=== PATIENT | female | born 1965 | race Caucasian/White ===

== ENCOUNTER 2020-05-06 07:01 | Outpatient (CLI) | payer MEDICARE, MEDICAID, SELFPAY ==
--- NOTE | 2020-05-06 07:14 | XR_ITS ---
WS: [id number] CHEST 2 VIEWS HISTORY: CHEST PAIN COMPARISON: 09/06/2018 Lungs: Clear with no abnormality. No pleural effusion or pneumothorax. Cardiac size: Normal. Mediastinum/Aorta: Normal mediastinum. Bones: Normal. XR/XR chest 2V* [id number] IMPRESSION: Normal chest.
--- NOTE | 2020-05-06 07:14 | NM_ITS ---
WS: [id number] NUCLEAR MEDICINE VENTILATION/PERFUSION LUNG SCAN HISTORY: CHEST PAIN COMPARISON: Chest radiograph 05/06/2020 TECHNIQUE: Ventilation: 32.4 mCi of Technetium 99 DTPA aerosol inhaled. Perfusion: 5.0 mCi of technetium 99m MAA IV. Marked deposition of the radionuclide centrally. There is poor ventilation bilaterally. Matched segme ntal wedge-shaped defects in the mid RIGHT lung. There is an additional smaller, subsegmental wedge-s haped defect in the LEFT lower lung field which is also matched. NM/NM pul vent and perfus* [id number] IMPRESSION: 1. Several matched defects. As these are matched defects low probability for p ulmonary embolism.
== END 2020-05-06 07:02 | disposition home or self-care (01) ==
PROVIDERS: Family Provider Family Medicine; PCP Family Medicine; Visit Provider Family Medicine
DX: R07.89 Other chest pain (principal)
CPT/HCPCS: 71046; 78014; A9540; A9567

== ENCOUNTER 2020-07-13 18:34 | Emergency (ER) | payer MEDICARE, MEDICAID, SELFPAY ==
[2020-07-13 18:51] VITALS: BP 109/74; PULSE 81; RESP 16; TEMP 37; O2SAT 97; BMI 20.9
== END 2020-07-13 20:20 | disposition left against medical advice (07) ==
PROVIDERS: PCP Family Medicine
DX: Z53.21 Procedure and treatment not carried out due to patient leaving prior to being seen by health care provider (principal)
CPT/HCPCS: 99282

== ENCOUNTER 2020-07-14 13:29 | Emergency (ER) | payer MEDICARE, MEDICAID, SELFPAY ==
[2020-07-14 13:31] VITALS: BP 118/71; PULSE 82; RESP 16; TEMP 37.3; O2SAT 96; BMI 20.7
--- NOTE | 2020-07-14 13:48 | ED_ITS ---
HPI - Neck Pain/Injury General: Chief Complaint: Neck Pain/Injury Stated Complaint: NECK PAIN Time Seen by Provider: 07/14/20 13:38 History of Present Illness: HPI Narrative: Patient woke up with neck pain she said 5 from sleeping wrong yesterday and next tight complaint: neck pain Onset (ago): day(s) Place: home Radiation: left lateral Severity: moderate Severity scale (1-10): 4 Quality: sharp Duration: constant Relieving factors: immobilization Exacerbating factors: movement of neck Context: unknown Associated symptoms: Reports no associated symptoms; Denies headache(s) or nausea Treatments prior to arrival: none Review of Systems Narrative: Okay from sleep with neck pain hurts to turn her head to the right hurts on the side. both on the left-hand side she says Const: Denies: fever(s), chills or body aches Eyes: Denies: change in vision or blurry vision ENMT: Denies: throat pain or nasal congestion Card: Denies: chest pain or dyspnea on exertion Resp: Denies: dyspnea, productive cough or non-productive cough GI: Denies: abdominal pain, nausea or vomiting Musc: Denies: extremity pain Skin/Breast: Denies: rash Neuro: Denies: headache(s) Psych: Denies: anxiety or depression Dandy/Lymph: Denies: easy bruising PFSH ED PFSH: Social History (Updated 07/12/20 @ 13:23 by Belgica Singh LPN) Smoking and tobacco status: current every day smoker Physical Exam Const: COMMON NORMALS: no acute distress, average body habitus and patient oriented x3 HENMT: COMMON NORMALS: normocephalic HEAD & SCALP: normal to inspection and normocephalic FACE & SINUS: normal facial exam Eye: COMMON NORMALS: conjunctivae normal GENERAL EYE: appearance normal, both eyes and all related structures CONJUNCTIVA: Yes conjunctivae normal Neck/C-Spine: COMMON NORMALS: supple, no meningeal signs, no JVD and Thyroid normal; negative for full ROM THYROID: Thyroid normal CERVICAL SPINE: Yes Paracervical muscle tenderness Chest: COMMONS NORMALS: normal inspection of the chest Resp: COMMON NORMALS: normal respiratory effort and clear to auscultation bilaterally AUSCULTATION: clear to auscultation bilaterally Cardio: COMMON NORMALS: no JVD, regular rate and regular rhythm RATE: regular rate RHYTHM: regular rhythm GI: COMMON NORMALS: Normal to inspection, nondistended, normoactive bowel sounds present Extremity: COMMON NORMALS: normal to inspection and full ROM Neuro: COMMON NORMALS: patient oriented x3 MENINGEAL SIGNS: Yes no meningeal signs Course Vital Signs: Vital signs: Vital Signs Temperature 99.1 F 07/14/20 13:31 Pulse Rate 82 07/14/20 13:31 Respiratory Rate 16 07/14/20 13:31 Blood Pressure 118/71 07/14/20 13:31 Pulse Oximetry 96 07/14/20 13:31 Discharge Plan Discharge Prescriptions: No Action Unable to Assess RF: 0 mupirocin 2 % ointment 1 applic TOPICAL TID Qty: 15 RF: 0 Coding Level of Care Code ED Special Effects Person for Michelle Morales
--- NOTE | 2020-07-14 13:50 | XRR_ITS ---
PROCEDURE INFORMATION: Exam: XR Cervical Spine, 4 or 5 Views Exam date and time: 07/14/2020 2:14 PM Age: 54 years old Clinical indication: Neck pain TECHNIQUE: Imaging protocol: XR of the cervical spine, 4 or 5 views. COMPARISON: No relevant prior studies available. FINDINGS: Vertebrae: There is mild osteoarthritis with narrowing of the C5-C6 intervertebral disc space. No acute fracture. There is loss of cervical lordosis suggesting muscle spasm. Soft tissues: Unremarkable. XR/XR cervical spine 4-5V [id number] IMPRESSION: 1. No acute bone abnormality. 2. Mild osteoarthritis 3. Loss of cervical lordosis
[2020-07-14] MEDS: ketorolac 60 mg/2 mL INJ IM (13:58)
[2020-07-14] MEDS: orphenadrine 30 mg/mL Inj 2 mL 60 MG IM (13:58)
[2020-07-14] MEDS: HYDROcodone-acetaminophen 5-325 mg Tablet 1 TAB PO (13:59)
[2020-07-14 14:50] VITALS: BP 118/74; PULSE 71; RESP 20; O2SAT 94
== END 2020-07-14 14:52 | disposition home or self-care (01) ==
PROVIDERS: Emergency Provider Nurse Practitioner Family; PCP Family Medicine
DX: M54.2 Cervicalgia (principal); F17.210 Nicotine dependence, cigarettes, uncomplicated
CPT/HCPCS: 12345; 72050; 96372; 99281; 99283; J1885; J2360

== ENCOUNTER → 2020-07-29 14:40 | Outpatient (BNVA) | payer MEDICARE, MEDICAID, SELFPAY | PROVIDERS: PCP Family Medicine; Visit Provider Obstetrics & Gynecology | DX: N39.3 Stress incontinence (female) (male) (principal) | CPT/HCPCS: 81000 ==

== ENCOUNTER 2020-09-15 10:02 | Outpatient (CLI) | payer MEDICARE, MEDICAID, SELFPAY ==
--- NOTE | 2020-09-15 10:09 | MM_ITS ---
WS: [id number] BILATERAL SCREENING DIGITAL MAMMOGRAM WITH CAD HISTORY: SCREENING COMPARISON: 03/17/2018 Bilateral CC and MLO views submitted. Computer aided detection analyzed. Breast composition: There are scattered areas of fibroglandular density. No suspicious masses, microc alcifications or architectural distortion. MM/[place] [id number] IMPRESSION: BI-RADS: 1-Negative FOLLOW UP: 1 Year Follow-up
== END 2020-09-15 10:03 | disposition home or self-care (01) ==
LOC: RADSHAW 10:07
PROVIDERS: PCP Family Medicine; Visit Provider Family Medicine
DX: Z12.31 Encounter for screening mammogram for malignant neoplasm of breast (principal)
CPT/HCPCS: 77067

== ENCOUNTER 2020-12-04 01:26 | Emergency (ER) | payer MEDICARE, MEDICAID, SELFPAY ==
[2020-12-04 01:30] VITALS: BP 127/88; PULSE 90; RESP 17; TEMP 36.7; O2SAT 95; BMI 21.1
--- NOTE | 2020-12-04 01:38 | ED_ITS ---
HPI - Headache General: Chief Complaint: Headache Stated Complaint: WEAKNESS/SHAMRA Time Seen by Provider: 12/04/20 01:31 Source: patient and EMS Mode of arrival: EMS Limitations: no limitations History of Present Illness: HPI Narrative: 55-year-old female is here by EMS. She states that her was arguing she is feeling stressed out and she had a headache. She states that since leaving her house her headache is improved greatly. She states that he was intoxicated and extremely stressed out. She denies any nausea vomiting. States her headache is now a 1 out of 10. Denies any chest pain. MD elicited complaint: headache Associated symptoms: Deny chest pain, fever(s), nausea, rash or vomiting Review of Systems Const: Denies: fever(s), chills, body aches or change in appetite Eyes: Denies: blurry vision or eye discomfort ENMT: Denies: throat pain or dental pain Card: Denies: chest pain Resp: Denies: dyspnea GI: Denies: abdominal pain, nausea, vomiting or diarrhea : Denies: dysuria Musc: Denies: neck pain or back pain Skin/Breast: Denies: rash Neuro: Reports: headache(s) Psych: Denies: depression Dandy/Lymph: Denies: easy bruising All/Imm: Denies: urticaria PFSH ED PFSH: Family History Father Hypertension Mother Diabetes Hyperlipidemia Hypertension Sister Ovarian cancer Uterine cancer Other CAD (coronary artery disease) Denies family history of Colon cancer Breast cancer Thyroid disease Stroke Social History Smoking and tobacco status: current every day smoker cigarettes Packs smoked per day: 0.5 Alcohol intake: never Physical Exam Const: COMMON NORMALS: no acute distress, patient oriented x3 and healthy appearing HENMT: COMMON NORMALS: normocephalic and atraumatic HEAD & SCALP: normocephalic and atraumatic Eye: COMMON NORMALS: Equal, round and reactive pupils present and EOMs intact bilaterally PUPIL: Yes Equal, round and reactive pupils present Neck/C-Spine: COMMON NORMALS: full ROM and supple Chest: COMMONS NORMALS: normal inspection of the chest and normal palpation of entire chest wall Resp: COMMON NORMALS: normal respiratory effort, No retractions, No use of accessory muscles and clear to auscultation bilaterally AUSCULTATION: clear to auscultation bilaterally Cardio: COMMON NORMALS: regular rate, regular rhythm and No murmurs present (Cardio) RATE: regular rate RHYTHM: regular rhythm GI: COMMON NORMALS: Normal to inspection, nondistended, normoactive bowel sounds present, Soft to palpation, non-tender and no masses PALPATION: Yes Soft to palpation Extremity: COMMON NORMALS: normal to inspection and full ROM Neuro: COMMON NORMALS: patient oriented x3, moves all extremities and no focal motor deficits Psych: COMMON NORMALS: mental status grossly normal, Normal thought process present and cooperative THOUGHT PROCESS: Normal thought process present Skin: COMMON NORMALS: no rashes or lesions noted and no wounds GENERAL SKIN EXAM: no rashes or lesions noted Course Vital Signs: Vital signs: Vital Signs Temperature 98.0 F 12/04/20 01:30 Pulse Rate 90 12/04/20 01:30 Respiratory Rate 17 12/04/20 01:30 Blood Pressure 127/88 12/04/20 01:30 Pulse Oximetry 95 12/04/20 01:30 MDM - Headache MDM Narrative: Medical decision making narrative: Jing presents here with headache likely caused from stress. She has no signs of subarachnoid hemorrhage or meningitis. She has been headache free here. Patient's blood work is normal. She is stable for discharge and is return if worsening. Lab Data: Labs: Lab Results 12/04/20 12/04/20 Range/Units 01:44 01:44 WBC 10.2 H (4.0-10.0) 10^3/ uL RBC 4.12 (4.1-5.3) 10^6/u L Hgb 13.9 (11.5-15.3) g/dL Hct 41.1 (37.0-47.0) % MCV 99.8 H (81-99) fL MCH 33.7 (28.0-34.0) pg MCHC 33.8 (30.0-36.0) g/dL RDW 13.3 (12.1-15.1) % Plt Count 306 (130-400) 10^3/c mm MPV 10.7 H (7.4-10.4) fL Neut % (Auto) 44.1 % Lymph % (Auto) 40.2 % [place] % (Auto) 9.3 % Eos % (Auto) 4.3 % Baso % (Auto) 1.6 % Neut # (Auto) 4.52 (1.8-7.7) 10^3/u L Lymph # (Auto) 4.1 (0.8-4.8) 10^3/u L [place] # (Auto) 1.0 H (0.2-0.9) 10^3/u L Eos # (Auto) 0.4 (0.0-0.8) 10^3/u L Baso # (Auto) 0.2 H (0.0-0.1) 10^3/u L Nucleated RBC % (a uto) 0 % Nucleated RBCs # 0.0 /100WBC Sodium 141 (136-145) mmol/L Potassium 3.9 (3.5-5.1) mmol/L Chloride 102 (98-107) mmol/L Carbon Dioxide 28 (22-29) mmol/L Anion Gap 14.9 (5-19) BUN 10 (6-20) mg/dL Creatinine 0.7 (0.5-0.9) mg/dL Glucose 111 (65-115) mg/dL Calculated Osmolal ity 292 (285-295) mOsm/k g Calcium 9.3 (8.5-10.5) mg/dL Discharge Plan Discharge Patient Disposition: Home Clinical Impression: Headache Qualifiers: Headache type: unspecified Headache chronicity pattern: unspecified pattern Intractability: not intractable Qualified Code(s): R51.9 - Headache, unspecified Condition: Stable Prescriptions: No Action gabapentin 300 mg capsule 300 mg PO .at hs RF: 0 albuterol sulfate [Ventolin HFA] 90 mcg/actuation HFA aerosol inhaler 2 puff INHALATION QID RF: 0 escitalopram oxalate [Lexapro] 20 mg tablet 20 mg PO DAILY RF: 0 fluticasone furoate 50 mcg/actuation blister with device 2 inh INHALATION .each nostril qd RF: 0 Trelegy Ellipta 100-62.5-25 mcg blister with device 1 inh INHALATION DAILY RF: 0 cyclobenzaprine 5 mg tablet 5 mg PO TID PRN (Reason: muscle spasm) Qty: 14 RF: 0 Discharge Orders: Discharge ED (Routine); Ordered 12/04/20 Ordered By: Rae Lowe Referrals: Asaf Nails MD [Primary Care Provider] - 1-3 days Discharge Diet: Advance as tolerated Discharge Activity: Resume usual activity Patient Instructions: Headache Coding Level of Care Code ED Blankbook Stitching Machine Operator for Chg Fwd Exam Comprehensive
[2020-12-04 01:51] LABS: Basophils # 0.2 10^3/uL (0.0-0.1); Basophils % 1.6 %; Eosinophils # 0.4 10^3/uL (0.0-0.8); Eosinophils % 4.3 %; Hematocrit 41.1 % (37.0-47.0); Hemoglobin 13.9 g/dL (11.5-15.3); Lymphocytes # 4.1 10^3/uL (0.8-4.8); Lymphocytes % 40.2 %; Mean Corpuscular HGB Conc 33.8 g/dL (30.0-36.0); Mean Corpuscular Hemoglobin 33.7 pg (28.0-34.0); Mean Corpuscular Volume 99.8 fL (81-99); Mean Platelet Volume 10.7 fL (7.4-10.4); Monocytes % 9.3 %; Neutrophils # 4.52 10^3/uL (1.8-7.7); Neutrophils % 44.1 %; Nucleated Red Blood Cells % 0 %; Platelet Count 306 10^3/cmm (130-400); Red Blood Count 4.12 10^6/uL (4.1-5.3); Red Cell Distribution Width 13.3 % (12.1-15.1); White Blood Count 10.2 10^3/uL (4.0-10.0)
[2020-12-04] MEDS: ketorolac 30 mg/mL INJ 15 MG IVP (01:54)
[2020-12-04] MEDS: ondansetron 2 mg/ML SDV 2 mL 4 MG IVP (01:54)
[2020-12-04 02:21] LABS: Anion Gap 14.9 (5-19); Blood Urea Nitrogen 10 mg/dL (6-20); Calcium 9.3 mg/dL (8.5-10.5); Carbon Dioxide 28 mmol/L (22-29); Chloride 102 mmol/L (98-107); Glomerular Filtration Rate 86.6 mL/min (90-130); Glucose 111 mg/dL (65-115); Osmolality Calculated 292 mOsm/kg (285-295); Potassium 3.9 mmol/L (3.5-5.1); Sodium 141 mmol/L (136-145)
[2020-12-04 02:32] VITALS: BP 124/84; PULSE 87; RESP 16; O2SAT 99
== END 2020-12-04 02:33 | disposition home or self-care (01) ==
PROVIDERS: Emergency Provider Emergency Medicine; PCP Family Medicine
DX: R51.9 Headache, unspecified (principal); F17.210 Nicotine dependence, cigarettes, uncomplicated
CPT/HCPCS: 12345; 80048; 85025; 96374; 96375; 99281; 99283; J1885; J2405

== ENCOUNTER 2022-01-24 07:57 | Emergency (ER) | payer MEDICARE, MEDICAID, SELFPAY ==
[2022-01-24 08:15] VITALS: BP 102/77; PULSE 73; RESP 16; TEMP 36.7; O2SAT 96; BMI 21.4
--- NOTE | 2022-01-24 08:29 | XRR_ITS ---
PROCEDURE INFORMATION: Exam: XR Left Hand Exam date and time: 01/24/2022 8:29 AM Age: 56 years old Clinical indication: Pain; Hand; Left; Additional info: Left hand pain TECHNIQUE: Imaging protocol: XR Left hand. Views: 3 or more views. COMPARISON: No relevant prior studies available. FINDINGS: Bones/joints: No acute fracture or malalignment. Mild 1st CMC joint degenerative changes. Osteopenia. Soft tissues: Normal. XR/XR hand LT min 3V* [id number] IMPRESSION: No acute fracture or malalignment.
--- NOTE | 2022-01-24 08:29 | ED_ITS ---
HPI - Extremity Problem General: Chief complaint: Extremity Injury, Upper Stated complaint: Left arm pain Time Seen by Provider: 01/24/22 08:21 Source: patient Mode of arrival: ambulatory Limitations: no limitations History of Present Illness: 56-year-old female presents to the ER today for left hand pain x2 weeks. Patient denies any known injury. She reports this pain in the palm and wrist. Patient reports she feels like there is some swelling there. Patient reports some pain with movement and also pain to palpation. Patient denies any prior injuries. Patient has been taking Tylenol for pain. Onset (ago): week(s) (2) Pain Consistency: constant Location: left and upper extremity Severity scale (1-10): 6 Radiation: none Relieving factors: nothing Exacerbating factors: range of motion and palpation Review of Systems General: Reports: 10 or more systems reviewed and unremarkable except in HPI and below PFSH ED PFSH: Family History Father Hypertension Mother Diabetes Hyperlipidemia Hypertension Sister Ovarian cancer Uterine cancer Other CAD (coronary artery disease) Denies family history of Colon cancer Breast cancer Thyroid disease Stroke Social History Smoking and tobacco status: current every day smoker cigarettes Packs smoked per day: 0.5 Alcohol intake: never Physical Exam Const: COMMON NORMALS: no acute distress, average body habitus, patient oriented x3, no limitations, healthy appearing, alert and well nourished Resp: COMMON NORMALS: normal respiratory effort EFFORT & INSPECTION: Yes able to speak in complete sentences Cardio: COMMON NORMALS: regular rate and regular rhythm RATE: regular rate RHYTHM: regular rhythm Extremity: NARRATIVE EXTREMITY EXAM: No swelling or deformity noted in the left hand or wrist. Tender to palpation palmar aspect of the left hand along the fifth meta carpal. No numbness or tingling noted. No decreased sensation noted. No loss of muscle tone in the thenar compartment noted. Neuro: COMMON NORMALS: patient oriented x3 SENSORIUM/ORIENTATION: Yes alert Psych: COMMON NORMALS: cooperative Skin: COMMON NORMALS: no rashes or lesions noted GENERAL SKIN EXAM: no rashes or lesions noted Course ED course: Patient presents for left wrist pain. We will get an x-ray although this seems to be more of a carpal tunnel versus soft tissue issue. Vital Signs: Vital signs: Vital Signs Temperature 98.1 F 01/24/22 08:15 Pulse Rate 73 01/24/22 08:15 Respiratory Rate 16 01/24/22 08:15 Blood Pressure 102/77 01/24/22 08:15 Pulse Oximetry 96 01/24/22 08:15 MDM - Extremity (Nontraumatic) Medical Decision Making 56-year-old female presents to the ER today for left hand pain x2 weeks. Patient reports no known injury or history of any injury to that hand. She reports some numbness and tingling in her middle and ring finger about a week ago. Patient has taken a lot of Tylenol with minimal relief. Patient reports pain with range of motion and also with palpation. X-ray done in the ER does not indicate any acute abnormalities. Discussed with patient this sounds a little bit like carpal tunnel syndrome. I would recommend a wrist brace to be worn every night in addition to anti-inflammatories. Follow-up with PCP in 10 to 14 days if no improvement. Return to the ER with any new or worsening symptoms. Patient verbalized understanding and is in agreement with the treatment plan. Lab Data Radiology Impressions Hand X-Ray 01/24/22 08:29 IMPRESSION: No acute fracture or malalignment. Critical Care Time Critical Care Time: Critical Care Time: No Discharge Plan Discharge Patient Disposition: Home Clinical Impression: Left hand pain Condition: Stable Prescriptions: New naproxen 500 mg tablet 500 mg PO Q12H PRN (Reason: pain) Qty: 20 0RF No Action escitalopram oxalate [Lexapro] 20 mg tablet 20 mg PO DAILY 0RF fluticasone furoate 50 mcg/actuation blister with device 2 inh INHALATION .each nostril qd 0RF Trelegy Ellipta 100-62.5-25 mcg blister with device 1 inh INHALATION DAILY 0RF albuterol sulfate [Ventolin HFA] 90 mcg/actuation HFA aerosol inhaler 2 puff INHALATION QID PRN0RF cyclobenzaprine 5 mg tablet 5 mg PO TID PRN (Reason: muscle spasm) Qty: 14 0RF Discharge Orders: Discharge ED (Routine); Ordered 01/24/22 Ordered By: Edith Henao Referrals: Asaf Nails MD [Primary Care Provider] - Discharge Diet: Usual diet Discharge Activity: Resume usual activity Patient Instructions: Opioid Safety Activity Restrictions/Additional Instructions: Wear hand brace as discussed. Take naproxen as prescribed. Apply ice to reduce pain or swelling. Follow-up with PCP in 5 to 7 days. Return to the ER with new or worsening symptoms. Coding Level of Care Code ED Cardiovascular Sonographer for Michelle Fwflores Exam Detailed
== END 2022-01-24 09:13 | disposition home or self-care (01) ==
PROVIDERS: Emergency Provider Physician Assistant; PCP Family Medicine
DX: M79.642 Pain in left hand (principal); F17.210 Nicotine dependence, cigarettes, uncomplicated
CPT/HCPCS: 73130; 99282

== ENCOUNTER 2022-07-08 15:21 | Emergency (ER) | payer MEDICARE, MEDICAID, SELFPAY ==
[2022-07-08 15:25] VITALS: BP 119/79; PULSE 100; RESP 18; TEMP 36.6; O2SAT 95; BMI 23.8
--- NOTE | 2022-07-08 15:29 | XR_ITS ---
WS: [id number] Portable AP upright chest, 07/08/2022 Clinical Data: chest pain Comparison: PA and lateral chest, 05/06/2020. Findings: No nodules, masses or effusions are seen. The heart is normal. The pulmonary vascularity is not increased. No pneumonia or pneumothorax is seen. Monitor leads are on the chest wall. XR/XR chest 1V portable [id number] Impression: Negative chest.
--- NOTE | 2022-07-08 15:40 | PC.NURSE ---
PT PLACED ON CONTINUOUS NIBP, SPO2, AND CM
[2022-07-08 16:00] LABS: Basophils # 0.1 10^3/uL (0.0-0.1); Basophils % 1.2 %; Eosinophils # 0.3 10^3/uL (0.0-0.8); Eosinophils % 2.7 %; Hemoglobin 13.6 g/dL (11.5-15.3); Lymphocytes # 3.5 10^3/uL (0.8-4.8); Lymphocytes % 34.2 %; Mean Corpuscular HGB Conc 34.9 g/dL (30.0-36.0); Mean Corpuscular Hemoglobin 36.8 pg (28.0-34.0); Mean Corpuscular Volume 105.4 fl (81-99); Monocytes % 9.4 %; Neutrophils # 5.28 10^3/uL (1.8-7.7); Neutrophils % 51.9 %; Nucleated Red Blood Cells % 0 %; Platelet Count 340 10^3/cmm (130-400); Red Cell Distribution Width 13.4 % (12.1-15.1); White Blood Count 10.2 10^3/uL (4.0-10.0)
[2022-07-08 16:17] VITALS: BP 109/74; PULSE 83; RESP 17; O2SAT 96
--- NOTE | 2022-07-08 16:47 | ED_ITS ---
Documented by User: Atilio Olson DO 07/16/22 06:43 HPI - Chest Pain General: Chief Complaint: Chest Pain Stated Complaint: cp Time Seen by Provider: 07/08/22 15:29 Source: patient Mode of arrival: EMS History of Present Illness: 56-year-old female presents emergency room with sharp substernal chest pain with no radiation of chest pain. Began while at rest. Sounds indicate anything that exacerbates or relieves it. She is not having associated shortness of breath or diaphoresis. MD complaint: chest pain Onset (ago): minute(s) Timing of current episode: episodic Onset: during rest Pain location: left chest Pain radiation: none Quality: aching Relieving factors: nothing Exacerbating factors: nothing Associated symptoms: Deny abdominal pain, diaphoresis, dyspnea, fever(s), leg edema, nausea, palpitations, sense of impending doom, syncope or vomiting Treatment prior to arrival: none Review of Systems Const: Denies: fever(s), chills, fatigue, malaise or diaphoresis ENMT: Denies: throat pain, ear or mastoid pain, nasal discharge or nasal congestion Card: Reports: chest pain and swelling of feet/ankles; Denies: palpitations, irregular heart rhythm, edema or syncope Resp: Denies: dyspnea GI: Denies: abdominal pain, nausea or vomiting : Denies: flank pain, difficulty voiding, dysuria, urinary frequency or urinary urgency Skin/Breast: Denies: rash or pruritus PFS ED PFSH: Family History Father Hypertension Mother Diabetes Hyperlipidemia Hypertension Sister Ovarian cancer Uterine cancer Other CAD (coronary artery disease) Denies family history of Colon cancer Breast cancer Thyroid disease Stroke Social History Smoking and tobacco status: current every day smoker cigarettes Packs smoked per day: 0.5 Alcohol intake: never Physical Exam Const: GENERAL APPEARANCE: cooperative and comfortable ORIENTATION/CONSCIOUSNESS: Yes awake, Yes oriented to person, Yes oriented to place and Yes oriented to time HENMT: COMMON NORMALS: normocephalic, atraumatic and hearing grossly normal bilaterally HEAD & SCALP: normocephalic and atraumatic Resp: COMMON NORMALS: normal respiratory effort, No retractions, No use of accessory muscles and clear to auscultation bilaterally AUSCULTATION: clear to auscultation bilaterally Cardio: COMMON NORMALS: regular rate, regular rhythm and No murmurs present (Cardio) RATE: regular rate RHYTHM: regular rhythm GI: COMMON NORMALS: Soft to palpation and No hepatosplenomegaly present AUSCULTATION: Yes normoactive bowel sounds PALPATION: Yes Soft to palpation, No Tenderness to palpation present (GI), No Guarding due to palpation present (GI) and Yes No hepatosplenomegaly present Extremity: COMMON NORMALS: normal to inspection, capillary refill normal, no clubbing, cyanosis or edema, no calf tenderness and no pedal edema Neuro: SENSORIUM/ORIENTATION: Yes oriented to person, Yes oriented to place and Yes oriented to time Skin: COMMON NORMALS: no rashes or lesions noted GENERAL SKIN EXAM: no rashes or lesions noted Course Vital Signs: Vital signs: Vital Signs Temperature 97.9 F 07/08/22 15:25 Pulse Rate 69 07/08/22 18:47 Respiratory Rate 16 07/08/22 18:47 Blood Pressure 128/82 07/08/22 18:47 Pulse Oximetry 97 07/08/22 18:47 Oxygen Delivery Me thod 07/08/22 18:00 MDM - Chest Pain Medical Decision Making Care signed out to Dr. Lowe at change of shift. See final notes for diagnosis and disposition. Patient presents with chest pains atypical in nature EKGs and troponins are negative she is well-appearing here pain-free she is stable for discharge she is to follow-up with PCP and return if worsening she understands agrees to plan. Medical Records I reviewed the patient's medical records. Lab Data I reviewed the patient's lab results. : 07/08/22 15:36 07/08/22 15:36 Radiology Impressions Chest X-Ray 07/08/22 15:29 Impression: Negative chest. Laboratory Results WBC 10.2 10^3/uL (4.0-10.0) H 07/08/22 15:36 RBC 3.70 10^6/uL (4.1-5.3) L 07/08/22 15:36 Hgb 13.6 g/dL (11.5-15.3) 07/08/22 15:36 Hct 39.0 % (37.0-47.0) 07/08/22 15:36 MCV 105.4 fl (81-99) H 07/08/22 15:36 MCH 36.8 pg (28.0-34.0) H 07/08/22 15:36 MCHC 34.9 g/dL (30.0-36.0) 07/08/22 15:36 RDW 13.4 % (12.1-15.1) 07/08/22 15:36 Plt Count 340 10^3/cmm (130-400) 07/08/22 15:36 MPV 11.0 fL (7.4-10.4) H 07/08/22 15:36 Neut % (Auto) 51.9 % 07/08/22 15:36 Lymph % (Auto) 34.2 % 07/08/22 15:36 [place] % (Auto) 9.4 % 07/08/22 15:36 Eos % (Auto) 2.7 % 07/08/22 15:36 Baso % (Auto) 1.2 % 07/08/22 15:36 Neut # (Auto) 5.28 10^3/uL (1.8-7.7) 07/08/22 15:36 Lymph # (Auto) 3.5 10^3/uL (0.8-4.8) 07/08/22 15:36 [place] # (Auto) 1.0 10^3/uL (0.2-0.9) H 07/08/22 15:36 Eos # (Auto) 0.3 10^3/uL (0.0-0.8) 07/08/22 15:36 Baso # (Auto) 0.1 10^3/uL (0.0-0.1) 07/08/22 15:36 Nucleated RBC % (auto) 0 % 07/08/22 15:36 Nucleated RBCs # 0.0 /100WBC 07/08/22 15:36 Sodium 141 mmol/L (136-145) 07/08/22 15:36 Potassium 3.6 mmol/L (3.5-5.1) 07/08/22 15:36 Chloride 102 mmol/L (98-107) 07/08/22 15:36 Carbon Dioxide 26 mmol/L (22-29) 07/08/22 15:36 Anion Gap 16.6 (5-19) 07/08/22 15:36 BUN 7 mg/dL (6-20) 07/08/22 15:36 Creatinine 0.7 mg/dL (0.5-0.9) 07/08/22 15:36 GFR Calculation 86.2 mL/min (90-130) L 07/08/22 15:36 Glucose 110 mg/dL (65-115) 07/08/22 15:36 Calculated Osmolality 291 mOsm/kg (285-295) 07/08/22 15:36 Calcium 9.0 mg/dL (8.5-10.5) 07/08/22 15:36 Troponin T Baseline 6 ng/L (0-10) 07/08/22 15:36 Troponin T 120 Minute 7.35 ng/L (0-10) 07/08/22 17:09 Delta Troponin T -1.35 ABS# (0-10) L 07/08/22 17:09 Discharge Plan Discharge Patient Disposition: Home Clinical Impression: Chest pain Condition: Stable Prescriptions: No Action escitalopram oxalate [Lexapro] 20 mg tablet 20 mg PO DAILY fluticasone furoate 50 mcg/actuation blister with device 2 inh INHALATION DAILY PRN (Reason: Allergy Symptoms) Trelegy Ellipta 100-62.5-25 mcg blister with device 1 inh INHALATION DAILY albuterol sulfate [Ventolin HFA] 90 mcg/actuation HFA aerosol inhaler 2 puff INHALATION QID PRN (Reason: Shortness Of Breath) gabapentin 300 mg capsule 300 mg PO DAILY Discharge Orders: Discharge ED (Routine); Ordered 07/08/22 Ordered By: Rae Lowe Referrals: Asaf Nails MD [Primary Care Provider] - 1-3 days Discharge Diet: Advance as tolerated Discharge Activity: Resume usual activity Patient Instructions: Chest Pain (ED) Coding Level of Care Code ED [employer] for Chg Fwd Exam Detailed Documented by User: Rae Lowe MD 07/08/22 18:17 HPI - Chest Pain General: Chief Complaint: Chest Pain Stated Complaint: cp Time Seen by Provider: 07/08/22 15:29 History of Present Illness: . PFSH ED PFSH: Family History Father Hypertension Mother Diabetes Hyperlipidemia Hypertension Sister Ovarian cancer Uterine cancer Other CAD (coronary artery disease) Denies family history of Colon cancer Breast cancer Thyroid disease Stroke Social History Smoking and tobacco status: current every day smoker cigarettes Packs smoked per day: 0.5 Alcohol intake: never Course Vital Signs: Vital signs: Vital Signs Temperature 97.9 F 07/08/22 15:25 Pulse Rate 69 07/08/22 18:47 Respiratory Rate 16 07/08/22 18:47 Blood Pressure 128/82 07/08/22 18:47 Pulse Oximetry 97 07/08/22 18:47 Oxygen Delivery Me thod 07/08/22 18:00 MDM - Chest Pain Medical Decision Making Patient presents with chest pains atypical in nature EKGs and troponins are negative she is well-appearing here pain-free she is stable for discharge she is to follow-up with PCP and return if worsening she understands agrees to plan. Lab Data : 07/08/22 15:36 07/08/22 15:36 Radiology Impressions Chest X-Ray 07/08/22 15:29 Impression: Negative chest. Laboratory Results WBC 10.2 10^3/uL (4.0-10.0) H 07/08/22 15:36 RBC 3.70 10^6/uL (4.1-5.3) L 07/08/22 15:36 Hgb 13.6 g/dL (11.5-15.3) 07/08/22 15:36 Hct 39.0 % (37.0-47.0) 07/08/22 15:36 MCV 105.4 fl (81-99) H 07/08/22 15:36 MCH 36.8 pg (28.0-34.0) H 07/08/22 15:36 MCHC 34.9 g/dL (30.0-36.0) 07/08/22 15:36 RDW 13.4 % (12.1-15.1) 07/08/22 15:36 Plt Count 340 10^3/cmm (130-400) 07/08/22 15:36 MPV 11.0 fL (7.4-10.4) H 07/08/22 15:36 Neut % (Auto) 51.9 % 07/08/22 15:36 Lymph % (Auto) 34.2 % 07/08/22 15:36 [place] % (Auto) 9.4 % 07/08/22 15:36 Eos % (Auto) 2.7 % 07/08/22 15:36 Baso % (Auto) 1.2 % 07/08/22 15:36 Neut # (Auto) 5.28 10^3/uL (1.8-7.7) 07/08/22 15:36 Lymph # (Auto) 3.5 10^3/uL (0.8-4.8) 07/08/22 15:36 [place] # (Auto) 1.0 10^3/uL (0.2-0.9) H 07/08/22 15:36 Eos # (Auto) 0.3 10^3/uL (0.0-0.8) 07/08/22 15:36 Baso # (Auto) 0.1 10^3/uL (0.0-0.1) 07/08/22 15:36 Nucleated RBC % (auto) 0 % 07/08/22 15:36 Nucleated RBCs # 0.0 /100WBC 07/08/22 15:36 Sodium 141 mmol/L (136-145) 07/08/22 15:36 Potassium 3.6 mmol/L (3.5-5.1) 07/08/22 15:36 Chloride 102 mmol/L (98-107) 07/08/22 15:36 Carbon Dioxide 26 mmol/L (22-29) 07/08/22 15:36 Anion Gap 16.6 (5-19) 07/08/22 15:36 BUN 7 mg/dL (6-20) 07/08/22 15:36 Creatinine 0.7 mg/dL (0.5-0.9) 07/08/22 15:36 GFR Calculation 86.2 mL/min (90-130) L 07/08/22 15:36 Glucose 110 mg/dL (65-115) 07/08/22 15:36 Calculated Osmolality 291 mOsm/kg (285-295) 07/08/22 15:36 Calcium 9.0 mg/dL (8.5-10.5) 07/08/22 15:36 Troponin T Baseline 6 ng/L (0-10) 07/08/22 15:36 Troponin T 120 Minute 7.35 ng/L (0-10) 07/08/22 17:09 Delta Troponin T -1.35 ABS# (0-10) L 07/08/22 17:09 Discharge Plan Discharge Patient Disposition: Home Clinical Impression: Chest pain Condition: Stable Prescriptions: No Action escitalopram oxalate [Lexapro] 20 mg tablet 20 mg PO DAILY fluticasone furoate 50 mcg/actuation blister with device 2 inh INHALATION DAILY PRN (Reason: Allergy Symptoms) Trelegy Ellipta 100-62.5-25 mcg blister with device 1 inh INHALATION DAILY albuterol sulfate [Ventolin HFA] 90 mcg/actuation HFA aerosol inhaler 2 puff INHALATION QID PRN (Reason: Shortness Of Breath) gabapentin 300 mg capsule 300 mg PO DAILY Discharge Orders: Discharge ED (Routine); Ordered 07/08/22 Ordered By: Rae Lowe Referrals: Asaf Nails MD [Primary Care Provider] - 1-3 days Discharge Diet: Advance as tolerated Discharge Activity: Resume usual activity Patient Instructions: Chest Pain (ED) Coding Level of Care Code ED [employer] for Chg Fwd Exam Detailed
[2022-07-08 17:00] VITALS: BP 90/57; PULSE 74; RESP 19; O2SAT 98
[2022-07-08 17:03] LABS: Troponin(5th) Baseline 6 ng/L (0-10)
[2022-07-08 17:11] LABS: Blood Urea Nitrogen 7 mg/dL (6-20); Carbon Dioxide 26 mmol/L (22-29); Chloride 102 mmol/L (98-107); Glomerular Filtration Rate 86.2 mL/min (90-130); Glucose 110 mg/dL (65-115); Osmolality Calculated 291 mOsm/kg (285-295); Sodium 141 mmol/L (136-145)
[2022-07-08 17:17] LABS: Anion Gap 16.6 (5-19); Potassium 3.6 mmol/L (3.5-5.1)
--- NOTE | 2022-07-08 17:30 | ECG_ITS ---
[facility] Test Date: 2022-07-08 Pat Name: Franny Callahan Department: Room: Gender: Female Compensation Analyst: : 1965 Requested By: Atilio Granda Order Number: [id number] Sarahi MD: Shanita Cruz M.D. Measurements Intervals [place] Rate: 72 P: 53 MS: 196 QRS: 4 QRSD: 71 T: 51 QT: 413 QTc: 453 Interpretive Statements SINUS RHYTHM POSSIBLE ANTERIOR MYOCARDIAL INFARCTION , PROBABLY OLD [30 ms Q WAVE IN V3/V4, OR R < 0.2 mV IN V4] Compared to ECG 07/08/2022 15:41:18 Myocardial infarct finding now present Electronically Signed On 07-09-2022 6:27:48 CDT by Shanita Cruz M.D. [id number]
[2022-07-08 17:39] LABS: Troponin 5 2HR 7.35 ng/L (0-10)
[2022-07-08 18:00] VITALS: BP 130/87; PULSE 74; RESP 18; O2SAT 97
[2022-07-08 18:11] LABS: Troponin 5 2HR Delta -1.35 ABS# (0-10)
[2022-07-08 18:47] VITALS: BP 128/82; PULSE 69; RESP 16; O2SAT 97
--- NOTE | 2022-07-08 21:30 | ECG_ITS ---
[facility] Test Date: 2022-07-08 Pat Name: Franny Callahan Department: Room: Gender: Female Web Database Developer: : 1965 Requested By: Atilio Granda Order Number: [id number] Sarahi MD: Shanita Cruz M.D. Measurements Intervals [place] Rate: 92 P: 64 VA: 173 QRS: 3 QRSD: 71 T: 64 QT: 351 QTc: 435 Interpretive Statements SINUS RHYTHM Compared to ECG 09/06/2018 12:49:58 First degree AV block no longer present Left-axis deviation no longer present Myocardial infarct finding no longer present Electronically Signed On 07-09-2022 6:28:26 CDT by Shanita Cruz M.D. [id number]
== END 2022-07-08 18:50 | disposition home or self-care (01) ==
PROVIDERS: Family Medicine; Emergency Provider Emergency Medicine; PCP Family Medicine
DX: R07.9 Chest pain, unspecified (principal); F17.210 Nicotine dependence, cigarettes, uncomplicated
CPT/HCPCS: 71045; 80048; 84484; 85025; 93005; 99285

== ENCOUNTER 2023-07-29 12:33 | Outpatient (CLI) | payer MEDICARE, MEDICAID, SELFPAY ==
--- NOTE | 2023-07-29 12:43 | MM_ITS ---
WS: [id number] BILATERAL 3D TOMOSYNTHESIS DIGITAL SCREENING MAMMOGRAPHY WITH CAD CLINICAL INFORMATION: SCREENING HISTORY: Screening mammogram. No current complaints. COMPARISON: 2020 TECHNIQUE: Bilateral CC and MLO views. FINDINGS: Scattered fibroglandular densities bilaterally. No suspicious focal mass, asymmetry, calcifications, or architectural distortion. No evidence of malignancy. IMPRESSION: MM/[place] [id number] BI-RADS: 1-Negative FOLLOW UP: 1 Year Follow-up Recommend return to annual screening mammography.
--- NOTE | 2023-07-29 12:44 | XR_ITS ---
WS: [id number] SCREENING DEXA SCAN [employer] CLINICAL INFORMATION: POSTMENOPAUSAL COMPARISON: None. FINDINGS: The L1-L4 bone mineral density measures 1.3. This corresponds to a T score score of 1.4 and Z score o f 2.7. Left femoral neck bone mineral density measures 1.03. This corresponds to a T score of 0.2 and Z scor e of 1.2. Right femoral neck bone mineral density measures 1.04. This corresponds to a T score 0.3 of and Z sco re of 1.2. Mean femoral neck bone mineral density measures 1.03. This corresponds to a T score of 0.2 and Z scor e of 1.2. IMPRESSION: Normal bone mineralization lumbar spine. Normal bone mineralization femoral necks. Patient's FRAX calculated 10 year probability for major osteoporotic fracture is 5.9% and osteoporoti c hip fracture is 0.3%.
== END 2023-07-29 12:34 | disposition home or self-care (01) ==
PROVIDERS: PCP Family Medicine; Visit Provider Family Medicine
DX: Z12.31 Encounter for screening mammogram for malignant neoplasm of breast (principal); Z13.820 Encounter for screening for osteoporosis; Z78.0 Asymptomatic menopausal state
CPT/HCPCS: 77063; 77067; 77080

== ENCOUNTER → 2023-11-21 12:46 | Outpatient (BNVA) | payer MEDICARE, MEDICAID, SELFPAY | PROVIDERS: PCP Family Medicine; Referring Provider Family Medicine; Visit Provider Internal Medicine Cardiovascular Disease | DX: R42 Dizziness and giddiness (principal); I49.1 Atrial premature depolarization; I49.3 Ventricular premature depolarization | CPT/HCPCS: 93225 ==

== ENCOUNTER 2024-05-10 16:44 | Emergency (ER) | payer MEDICARE, MEDICAID, SELFPAY ==
[2024-05-10 16:49] VITALS: BP 113/73; PULSE 95; RESP 15; TEMP 36.7; O2SAT 95; BMI 24.7
--- NOTE | 2024-05-10 18:23 | ED_ITS ---
HPI - Abdominal Pain General: Chief Complaint: Abdominal Pain Stated Complaint: abd pain Time Seen by Provider: 05/10/24 17:02 Source: patient Mode of arrival: ambulatory Limitations: no limitations History of Present Illness: Patient is a 58-year-old female presenting to the emergency department complaining of right-sided abdominal pain onset today. Patient notes that a few hours prior to arrival she had an episode of acute onset right abdominal pain, of which she has never had before. She states that it lasted for few minutes and she was able to get it to go away by raising her right arm over her head. She states that she is not having any other symptoms at all, and just got worried. She thinks it is a muscle strain, however wanted to be sure. She has no pertinent medical history to report. She does see primary care and followed up with them a couple weeks ago. She has no history of kidney stones and denies any urinary symptoms. She is currently pain-free at this time. She was offered workup with blood in urine, of which she denies. States she wants to go home at this time. MD elicited complaint: abdominal pain Pertinent past history: none Onset (ago): hour(s) Pain Consistency: now resolved Location: RUQ and RLQ Severity: mild Quality: cramping Radiation: none Migration to: no migration Exacerbating factors: nothing Relieving factors: other (Raising right arm overhead) Associated Symptoms: Reports no associated symptoms; Denies bloating, change in stool character, chills, constipation, diarrhea, dysuria, fever(s), hematochezia, nausea and vomiting Review of Systems General: Reports: 10 or more systems reviewed and unremarkable except in HPI and below Const: Denies: fever(s), chills, change in appetite, change in weight or diaphoresis ENMT: Denies: throat pain or hoarseness Card: Denies: chest pain, palpitations or lightheadedness Resp: Denies: dyspnea, productive cough or wheezing GI: Reports: abdominal pain; Denies: nausea, vomiting, diarrhea, constipation, bloating, change in stool character or hematochezia : Denies: flank pain, difficulty voiding, dysuria, urinary frequency or urinary urgency Musc: Denies: neck pain or back pain Skin/Breast: Denies: rash or new lesions Neuro: Denies: headache(s) or dizziness PFSH ED PFSH: Family History Father Hypertension Mother Diabetes Hyperlipidemia Hypertension Sister Ovarian cancer Uterine cancer Other CAD (coronary artery disease) Denies family history of Colon cancer Breast cancer Thyroid disease Stroke Social History Smoking and tobacco/nicotine status: current every day tobacco/nicotine user cigarettes Packs smoked per day: 0.5 Alcohol intake: never Substance/Drug Use: never Physical Exam Const: COMMON NORMALS: no acute distress, average body habitus, patient oriented x3, no limitations, healthy appearing, alert and well nourished GENERAL APPEARANCE: cooperative and comfortable ORIENTATION/CONSCIOUSNESS: Yes awake HENMT: COMMON NORMALS: normocephalic, atraumatic, hearing grossly normal bilaterally, external ears normal, Normal external nose present, Normal nasal mucous membranes and turbinates present and moist oral mucous membranes HEAD & SCALP: normocephalic and atraumatic NOSE: Normal external nose present and Normal nasal mucous membranes and turbinates present EXTERNAL EAR: Yes external ears normal Eye: COMMON NORMALS: Equal, round and reactive pupils present, EOMs intact bilaterally, conjunctivae normal and normal visual he by confrontation CONJUNCTIVA: Yes conjunctivae normal PUPIL: Yes Equal, round and reactive pupils present Neck/C-Spine: COMMON NORMALS: full ROM, supple, no meningeal signs and no JVD Resp: COMMON NORMALS: normal respiratory effort, No retractions, No use of accessory muscles and clear to auscultation bilaterally AUSCULTATION: clear to auscultation bilaterally, no crackles, no rales, no rhonchi and no wheezes Cardio: COMMON NORMALS: no JVD, regular rate, regular rhythm, S1 normal heart sound present, S2 normal heart sound present, No gallops present (Cardio), No clicks present (Cardio), No murmurs present (Cardio), No rub (Cardio) and Peripheral pulses 2+ throughout RATE: regular rate RHYTHM: regular rhythm HEART SOUNDS: S1 normal heart sound present and S2 normal heart sound present PERIPHERAL PULSES: Peripheral pulses 2+ throughout GI: COMMON NORMALS: Normal to inspection, nondistended, normoactive bowel sounds present, Soft to palpation, non-tender, No hepatosplenomegaly present and no masses AUSCULTATION: Yes normoactive bowel sounds PALPATION: Yes Soft to palpation, No Guarding due to palpation present (GI), No Rigid due to palpation and Yes No hepatosplenomegaly present RECTAL EXAM: deferred : COMMON NORMALS: Yes no CVA tenderness BLADDER/KIDNEY EXAM: Yes no CVA tenderness Back/Pelvis: COMMON NORMALS: no CVA tenderness Extremity: COMMON NORMALS: normal to inspection and full ROM Neuro: COMMON NORMALS: patient oriented x3, moves all extremities, no focal motor deficits and no sensory deficits noted SENSORIUM/ORIENTATION: Yes alert MENINGEAL SIGNS: Yes no meningeal signs Psych: COMMON NORMALS: mental status grossly normal, cooperative and speech normal SPEECH: Yes normal speech Skin: COMMON NORMALS: no rashes or lesions noted GENERAL SKIN EXAM: no rashes or lesions noted Course Vital Signs: Vital signs: Vital Signs Temperature 98.0 F 05/10/24 16:49 Pulse Rate 95 05/10/24 16:49 Respiratory Rate 15 05/10/24 16:49 Blood Pressure 113/73 05/10/24 16:49 Pulse Oximetry 95 05/10/24 16:49 Oxygen Delivery Me thod Room Air 05/10/24 16:49 MDM - Abdominal Pain Medical Decision Making Patient denied lab work or urinalysis for workup, states that she wants to go home and will use Tylenol and ibuprofen. However I did instruct her that if she has any recurrence of pain or other symptoms, that she needs to return for reevaluation. Otherwise she is instructed to follow-up with primary care. This case was discussed with Dr. Cosme, who agrees with disposition. No radiology studies performed this visit Discharge Plan Discharge Patient Disposition: Home Clinical Impression: Abdominal wall pain Condition: Stable Prescriptions: No Action Trelegy Ellipta 100-62.5-25 mcg blister with device 1 inh INHALATION DAILY albuterol sulfate [Ventolin HFA] 90 mcg/actuation HFA aerosol inhaler 2 puff INHALATION QID PRN (Reason: Shortness Of Breath) Discharge Orders: Discharge ED (Routine); Ordered 05/10/24 Ordered By: Man Gore Referrals: Asaf Nails MD [Primary Care Provider] - Discharge Diet: Usual diet Discharge Activity: Increase activity as tolerated Patient Instructions: Abdominal Pain (ED), Opioid Safety, Pain Management Activity Restrictions/Additional Instructions: Please return if you have any more episodes of pain or other symptoms. Plenty of fluids. Take Tylenol or ibuprofen. Follow-up with primary care as needed. Coding Level of Care Code ED [employer] Analyst for Michelle Morales
[2024-05-10 18:42] VITALS: PULSE 93; RESP 16; O2SAT 96
== END 2024-05-10 18:41 | disposition home or self-care (01) ==
PROVIDERS: Emergency Provider Physician Assistant; PCP Family Medicine
DX: R10.9 Unspecified abdominal pain (principal)
CPT/HCPCS: 99282

== ENCOUNTER 2024-07-30 08:19 | Outpatient (CLI) | payer MEDICARE, MEDICAID, SELFPAY ==
--- NOTE | 2024-07-30 08:28 | MM_ITS ---
WS: [id number] BILATERAL SCREENING DIGITAL TOMOSYNTHESIS MAMMOGRAM WITH CAD HISTORY: SCREENING COMPARISON: 07/29/2023, 09/15/2020 Bilateral CC and MLO views with tomosynthesis and synthetic mammography submitted. Computer aided det ection analyzed. Breast composition: There are scattered areas of fibroglandular density. No suspicious masses, microc alcifications or architectural distortion. MM/MM scr BI tomosynthesis [id number] IMPRESSION: BI-RADS: 2 - Benign. FOLLOW UP: 1 Year Follow-up
== END 2024-07-30 08:20 | disposition home or self-care (01) ==
LOC: RAD 08:21
PROVIDERS: PCP Family Medicine; Visit Provider Family Medicine
DX: Z12.31 Encounter for screening mammogram for malignant neoplasm of breast (principal); R92.323 Mammographic fibroglandular density, bilateral breasts
CPT/HCPCS: 77063; 77067

== ENCOUNTER 2024-12-09 11:34 | Inpatient (IN) | payer MEDICARE, MEDICAID, SELFPAY ==
[2024-12-09] VITALS (20 sets, daily range): BP systolic 81–118; BP diastolic 51–86; PULSE 82–116; RESP 16–26; TEMP 36.7; O2SAT 84–96; BMI 20.5
--- NOTE | 2024-12-09 12:44 | XRR_ITS ---
PROCEDURE INFORMATION: Exam: XR Chest Exam date and time: 12/09/2024 1:08 PM Age: 59 years old Clinical indication: Shortness of breath; Patient HX: SOB; Copd TECHNIQUE: Imaging protocol: Radiologic exam of the chest. Views: 1 view. COMPARISON: CR XR chest 2V* [id number] 08/28/2024 10:13 AM FINDINGS: Tubes, catheters and devices: None. Lungs: Bilateral pulmonary linear interstitial opacities identified within lower lungs. The pulmonary opacities are most prominent within the lower left lung. The bilateral upper lungs appear clear. Pleural spaces: No pleural effusion. No pneumothorax. Heart/Mediastinum: Mediastinum and harlan appear unremarkable. Vasculature: [id number] atherosclerotic calcification demonstrated within the aorta. Bones/joints: No acute bony abnormality identified. XR/XR chest 1V portable [id number] IMPRESSION: Pulmonary atelectasis or acute infiltrates within lower chest bilaterally.
--- NOTE | 2024-12-09 12:49 | ED_ITS ---
HPI - URI/Sore Throat 2 General: Chief Complaint: Upper Respiratory Infection Stated Complaint: coughing, hurting all over Time Seen by Provider: 12/09/24 12:27 History of Present Illness: Patient is a 59-year-old female with history of COPD. She states her son-in-law was sick last week and she started feeling bad about 3 days ago. She states generalized bodyaches, nausea, nonproductive cough, shortness of breath with exertion. She notes no fever and no chills. She has not vomited but states when she eats or drinks she does feel nauseated. Patient states she uses an inhaler at home. She does not normally use oxygen but was 88% on arrival on room air. She is currently on 2 L satting about 92%. Patient currently not working to breathe and has bilateral wheezing. Related Data Home Medications Medication Instructions Recorded Confirmed fluticasone fur. 100 mcg-umeclid 1 inh inhalation DAILY 07/29/20 12/09/24 62.5 mcg-vilant 25 mcg inhalat.powder (Trelegy Ellipta) albuterol sulfate 90 mcg/actuation 2 puff inhalation QID PRN 12/09/20 12/09/24 aerosol inhaler (Ventolin HFA) Shortness Of Breath Previous Rx's Medication Instructions Recorded doxycycline hyclate 100 mg capsule 100 mg PO BID 10 days #20 caps 12/09/24 prednisone 20 mg tablet 40 mg (2 x 20 mg) PO DAILY 5 days 12/09/24 #10 tabs Allergies Allergy/AdvReac Type Severity Reaction Status Date / Time Penicillins Allergy Unknown unknown Verified 12/09/24 12:09 Iodinated Contrast Media Allergy ALGY-Hives Verified 12/09/24 12:09 PFSH ED 2 PFSH: Family History Father Hypertension Mother Diabetes Hyperlipidemia Hypertension Sister Ovarian cancer Uterine cancer Other CAD (coronary artery disease) Denies family history of Colon cancer Breast cancer Thyroid disease Stroke Social History Smoking and tobacco/nicotine status: current every day tobacco/nicotine user cigarettes Packs smoked per day: 0.5 Alcohol intake: never Substance/Drug Use: never Physical Exam 2 Const: COMMON NORMALS: no acute distress, patient oriented x3 and alert G ENERAL APPEARANCE: cooperative HENMT: COMMON NORMALS: normocephalic and atraumatic HEAD & SCALP: n ormocephalic and atraumatic Eye: COMMON NORMALS: Equal, round and reactive pupils present and EOMs intact bilaterally PUPIL: Yes Equal, round and reactive pupils present Neck/C-Spine: COMMON NORMALS: full ROM and supple Chest: COMMONS NORMALS: normal inspection of the chest Resp: COMMON NORMALS: normal respiratory effort AUSCULTATION: wheezes Cardio: COMMON NORMALS: regular rate and regular rhythm RATE: regular rate RHYTHM: regular rhythm GI: COMMON NORMALS: Normal to inspection, nondistended, normoactive bowel sounds present and non-tender : COMMON NORMALS: Yes no CVA tenderness BLADDER/KIDNEY EXAM: Yes no CVA tenderness Back/Pelvis: COMMON NORMALS: no CVA tenderness and thoracic and lumbar spine normal to inspection Extremity: COMMON NORMALS: normal to inspection, full ROM and no pedal edema Neuro: COMMON NORMALS: patient oriented x3 and no focal motor deficits S ENSORIUM/ORIENTATION: Yes alert Psych: COMMON NORMALS: cooperative Skin: COMMON NORMALS: no rashes or lesions noted GENERAL SKIN EXAM: no rashes or lesions noted Course 2 Vital Signs: Vital signs: Vital Signs Temperature 98.1 F 12/09/24 12:09 Pulse Rate 98 12/09/24 15:00 Respiratory Rate 16 12/09/24 15:00 Blood Pressure 83/51 12/09/24 15:00 Pulse Oximetry 95 12/09/24 15:00 Oxygen Delivery Me thod Nasal Cannula 12/09/24 15:00 Oxygen Flow Rate 2 12/09/24 15:00 MDM - URI/Sore Throat Medical Decision Making Patient had mild wheezing on arrival. She was satting 88% on room air. Patient is flu positive. Chest x-ray showed some base infiltrates. No obvious pneumonia. Patient had 2 DuoNeb treatments. She is breathing much better and she is currently satting about 96% and comes down to about 93 on room air. Patient received some Solu-Medrol. Patient also got a liter of fluid. Patient had Zofran and is no longer nauseated. Has been drinking fluid. Patient asking for discharge. Will put her on a course of steroid and I gave her a doxycycline here and will put her on course at home as she would be more susceptible to developing a pneumonia. Have given return precautions. Lab Data 12/09/24 13:00 12/09/24 13:00 Radiology Impressions Chest X-Ray 12/09/24 12:44 IMPRESSION: Pulmonary atelectasis or acute infiltrates within lower chest bilaterally. Laboratory Results WBC 7.10 10^3/uL (3.29-11.43) 12/09/24 13:00 RBC 4.45 10^6/uL (3.85-5.65) 12/09/24 13:00 Hgb 13.30 g/dL (11.27-16.99) 12/09/24 13:00 Hct 41.1 % (36-47) 12/09/24 13:00 MCV 92.4 fl (85-98) 12/09/24 13:00 MCH 29.9 pg (27-33) 12/09/24 13:00 MCHC 32.4 g/dL (30-55) 12/09/24 13:00 RDW 15.9 % (12.1-15.1) H 12/09/24 13:00 Plt Count 273 10^3/cmm (157-399) 12/09/24 13:00 MPV 10.5 fL (7.4-10.4) H 12/09/24 13:00 Neut % (Auto) 68.4 % 12/09/24 13:00 Lymph % (Auto) 13.9 % 12/09/24 13:00 [place] % (Auto) 14.9 % 12/09/24 13:00 Eos % (Auto) 0.7 % 12/09/24 13:00 Baso % (Auto) 1.4 % 12/09/24 13:00 Neut # (Auto) 4.85 10^3/uL (1.8-7.7) 12/09/24 13:00 Lymph # (Auto) 1.0 10^3/uL (0.8-4.8) 12/09/24 13:00 [place] # (Auto) 1.1 10^3/uL (0.2-0.9) H 12/09/24 13:00 Eos # (Auto) 0.1 10^3/uL (0.0-0.8) 12/09/24 13:00 Baso # (Auto) 0.1 10^3/uL (0.0-0.1) 12/09/24 13:00 Nucleated RBC % (auto) 0 % 12/09/24 13:00 Nucleated RBCs # 0.0 /100WBC 12/09/24 13:00 Sodium 139 mmol/L (136-145) 12/09/24 13:00 Potassium 3.8 mmol/L (3.5-5.1) 12/09/24 13:00 Chloride 99 mmol/L (98-107) 12/09/24 13:00 Carbon Dioxide 26 mmol/L (22-29) 12/09/24 13:00 Anion Gap 17.8 (5-19) 12/09/24 13:00 BUN 13 mg/dL (8-23) 12/09/24 13:00 Creatinine 0.8 mg/dL (0.5-0.9) 12/09/24 13:00 GFR Calculation 73.2 mL/min (90-130) L 12/09/24 13:00 Glucose 117 mg/dL (65-115) H 12/09/24 13:00 Calculated Osmolality 289 mOsm/kg (285-295) 12/09/24 13:00 Calcium 9.0 mg/dL (8.5-10.5) 12/09/24 13:00 Influenza Type A Ag Positive (Negative) H 12/09/24 12:23 Influenza Type B Ag Negative (Negative) 12/09/24 12:23 All radiology interpretation(s) finalized by discharge Discharge Plan Discharge Patient Disposition: Home Clinical Impression: Influenza, Acute exacerbation of chronic obstructive pulmonary disease Condition: Stable Prescriptions: New doxycycline hyclate 100 mg capsule 100 mg PO BID 10 Days Qty: 20 0RF prednisone 20 mg tablet 40 mg PO DAILY 5 Days Qty: 10 0RF No Action Trelegy Ellipta 100-62.5-25 mcg blister with device 1 inh INHALATION DAILY albuterol sulfate [Ventolin HFA] 90 mcg/actuation HFA aerosol inhaler 2 puff INHALATION QID PRN (Reason: Shortness Of Breath) Discharge Orders: Discharge ED (Routine); Ordered 12/09/24 Ordered By: Michael Macias Referrals: Asaf Nails MD [Primary Care Provider] - Discharge Diet: Usual diet Discharge Activity: Increase activity as tolerated Patient Instructions: Influenza (ED), Opioid Safety, Pain Management Coding Level of Care Code ED Toddler Lead Teacher for Michelle Morales
--- NOTE | 2024-12-09 12:59 | PC.NURSE ---
this nurse assumed pt care at 1300 from VIVEK Cedeno.
[2024-12-09] MEDS: ipratropium-albuterol 3 mL Neb INHALATION ×3 (13:18→19:16)
[2024-12-09] MEDS: methylPREDNISolone sod succ 125 mg/2 mL INJ IV (13:27)
[2024-12-09] MEDS: ondansetron 2 mg/ML SDV 2 mL 4 MG IVP (13:27)
[2024-12-09 13:28] LABS: Basophils # 0.1 10^3/uL (0.0-0.1); Basophils % 1.4 %; Eosinophils # 0.1 10^3/uL (0.0-0.8); Eosinophils % 0.7 %; Hematocrit 41.1 % (36-47); Lymphocytes % 13.9 %; Mean Corpuscular HGB Conc 32.4 g/dL (30-55); Mean Corpuscular Hemoglobin 29.9 pg (27-33); Mean Corpuscular Volume 92.4 fl (85-98); Mean Platelet Volume 10.5 fL (7.4-10.4); Monocytes # 1.1 10^3/uL (0.2-0.9); Monocytes % 14.9 %; Neutrophils # 4.85 10^3/uL (1.8-7.7); Neutrophils % 68.4 %; Nucleated Red Blood Cells % 0 %; Platelet Count 273 10^3/cmm (157-399); Red Blood Count 4.45 10^6/uL (3.85-5.65); Red Cell Distribution Width 15.9 % (12.1-15.1)
[2024-12-09 13:51] LABS: Anion Gap 17.8 (5-19); Blood Urea Nitrogen 13 mg/dL (8-23); Carbon Dioxide 26 mmol/L (22-29); Chloride 99 mmol/L (98-107); Creatinine Clr Calc Pharmacy 64.4494; Glomerular Filtration Rate 73.2 mL/min (90-130); Glucose 117 mg/dL (65-115); Osmolality Calculated 289 mOsm/kg (285-295); Potassium 3.8 mmol/L (3.5-5.1); Sodium 139 mmol/L (136-145)
[2024-12-09 13:54] LABS: Influenza A by IFA Positive (Negative); Influenza B by IFA Negative (Negative)
[2024-12-09] MEDS: sodium chloride 0.9% 1,000 ML 999 ML IV ×3 (14:18→18:57)
[2024-12-09] MEDS: doxycycline 100 mg Tablet PO (14:18)
[2024-12-09 16:42] LABS: Lactic Sepsis W/Reflex 2.1 mmol/L (0.5-2.2)
[2024-12-09 17:22] LABS: Reflex Lactate Order REFLEX LACTIC ORDERD
--- NOTE | 2024-12-09 17:27 | P.HP_ITS ---
Providers/Chief Complaint 2 Admitting Physician: Andria Weldon MD Primary Care Provider: Asaf Nails MD Chief Complaint: coughing, hurting all over History of Present Illness Franny Callahan is a 59 year old female chronic smoker, history of COPD not on oxygen presents to the ER today because of difficulty in breathing which has been getting worse over the last 3 days. Difficulty in breathing associated with cough getting worse on exertion. Has been complaining of headache which patient attributed to possible migraine. Patient has been smoking until 5 days ago. In the ER she was found to be hypotensive with blood pressure persistently in 80 systolics even after 2 L of IV fluid bolus. She was treated with fluid bolus, steroid and nebulization treatment Review of Systems 2 General: Reports: 10 or more systems reviewed and unremarkable except in HPI and below Const: Denies: fever(s), chills or body aches Eyes: Denies: change in vision, blurry vision or photophobia ENMT: Reports: hoarseness; Denies: throat pain, enlarged tonsils, odynophagia or nasal congestion Card: Denies: chest pain, palpitations, irregular heart rhythm, edema, swelling of feet/ankles, lightheadedness, pre-syncope, dyspnea on exertion or orthopnea Resp: Denies: dyspnea, productive cough, non-productive cough, wheezing, stridor, pain on inspiration, change in phlegm color, hemoptysis or chest congestion GI: Denies: abdominal pain, nausea, vomiting, hematemesis, coffee ground emesis, dysphagia, heartburn, diarrhea, constipation, GI cramping, change in stool character, hematochezia or melena : Denies: flank pain, difficulty voiding, dysuria, urinary frequency, urinary urgency, urinary hesitancy or hematuria Musc: Denies: neck pain, back pain, extremity pain, joint swelling, joint warmth or deformity Neuro: Denies: headache(s), numbness in extremities, weakness in extremities, sensory changes, difficulty walking, frequent falls, dizziness, vertigo, behavioral changes, Slurred speech present or seizure-like activity Psych: Denies: anxiety, depression, suicidal ideation or homicidal ideation Endo: Denies: polyuria, polydipsia, tired all the time, cold intolerance or hot flashes Dandy/Lymph: Denies: easy bruising or easy bleeding Medications/Allergies Home Medications Medication Instructions Recorded Confirmed Last Taken Type fluticasone fur. 100 mcg-umeclid 1 inh inhalation DAILY 07/29/20 12/09/24 12/08/24 History 62.5 mcg-vilant 25 mcg inhalat.powder (Trelegy Ellipta) albuterol sulfate 90 mcg/actuation 2 puff inhalation QID PRN 12/09/20 12/09/24 Unknown History aerosol inhaler (Ventolin HFA) Shortness Of Breath doxycycline hyclate 100 mg capsule 100 mg PO BID 10 days #20 caps 12/09/24 Unknown Rx prednisone 20 mg tablet 40 mg (2 x 20 mg) PO DAILY 5 days 12/09/24 Unknown Rx #10 tabs Allergies Allergy/AdvReac Type Severity Reaction Status Date / Time Penicillins Allergy Unknown unknown Verified 12/09/24 12:09 Iodinated Contrast Media Allergy ALGY-Hives Verified 12/09/24 12:09 PFSH Acute 2 PFSH: Medical History (Updated 12/09/24 @ 17:32 by Andria Weldon MD) COPD (chronic obstructive pulmonary disease) Surgical History (Updated 12/09/24 @ 17:32 by Andria Weldon MD) Hx of tubal ligation (~1987) Family History Father Hypertension Mother Diabetes Hyperlipidemia Hypertension Sister Ovarian cancer Uterine cancer Other CAD (coronary artery disease) Denies family history of Colon cancer Breast cancer Thyroid disease Stroke Social History Smoking and tobacco/nicotine status: current every day tobacco/nicotine user cigarettes Packs smoked per day: 0.5 Alcohol intake: never Substance/Drug Use: never Vitals/I&O/Wt Last Vital Signs Temp 98.1 F 12/09/24 12:09 Pulse 101 H 12/09/24 16:41 Resp 16 12/09/24 16:41 BP 85/61 12/09/24 16:41 Pulse Ox 90 12/09/24 16:41 O2 Del Method Nasal Cannula 12/09/24 16:41 O2 Flow Rate 2 12/09/24 16:41 12/09/24 12/09/24 12/09/24 06:59 14:59 22:59 Intake Total 0 / 0 Balance 0 / 0 Weight last 48 hrs Weight 54.431 kg Physical Exam 2 Narrative: General: No acute distress, AO x3, dehydrated HEENT: PERRLA, pupils bilaterally equal and reactive, pallors not present Chest: B/L wheezing CVS: S1-S2 regular, no murmurs, no tachycardia, no gallops, no rubs Abdomen: Soft, nontender, no organomegaly, bowel sounds present Neuro: No focal deficits, no facial deformity, AO x3, power 5/5 in all limbs Data 12/09/24 13:00 12/09/24 13:00 A&P Assessment and plan (1) Respiratory failure with hypoxia: Most likely in setting of COPD exacerbation from influenza A. Oxygen supplementation keeping saturation over 90%. Associated with shock. Check ABG. Check sputum culture, D-dimer, lactate, proBNP, procalcitonin. (2) Acute exacerbation of chronic obstructive pulmonary disease: Solu-Medrol 40 mg every 6 hour. Will plan to de-escalate within next 24 to 48 hours. Pulmicort twice daily, ipratropium every 6 hour. (3) Influenza: Found to be positive on viral panel. Associated with respiratory failure and shock. Start on Tamiflu 75 mg twice daily. Supportive treatment with aggressive pulmonary toilet with I-S and Acapella. Out of bed to chair. (4) Shock: Unknown cause. Check lactate, blood culture, cortisol level, D-dimer, procalcitonin. Patient does not have leukocytosis. Depending on D-dimer plan for CTA. Received 2 L of IV fluid bolus in the ER. Will give 1 more liter IV fluid bolus. Check echocardiogram. Normal saline at 75 cc/h. Levophed as needed for mean blood pressure to be maintained over 65. Monitor renal functions. Empirically for now start patient on IV ceftriaxone 1 g daily. Demarco catheterization to monitor urine output. (5) COPD (chronic obstructive pulmonary disease): Chronic smoker. Nicotine patch as needed. Counseled in detail with the patient about trying to quit smoking. Plan Full code Regular diet Protonix OPD prophylaxis Heparin 5000 every 12 for DVT prophylaxis Admit to ICU given concerns for shock. Attestations 2 Medical Necessity Statement*: Admit for more than 2 midnights for management of shock, hypoxic respiratory failure in setting of COPD exacerbation due to influenza A Critical Care Time: The high probability of a clinically significant, sudden or life threatening deterioration of the patient's [cardiac, pulmonary] system(s) required my full and direct attention, intervention and personal management. The critical care time is as shown. This time is in addition to time spent performing any reported procedures but includes the following: [x] Data and vital sign review and interpretation [x] Patient assessment, examination and intervention [x] Documentation [x] Medication orders and management Critical Care Time (min): 70 Coding Level of Care Code Critical Care >/= 30 minutes Critical care time (in minutes): 70 The high probability of a clinically significant, sudden or life threatening deterioration, as referenced in this documentation, required my full and direct attention, intervention and personal management. The critical care time shown is in addition to time spent performing any reported separately billable procedures and includes the following: [x] Data and vital sign review and interpretation [x ] Patient assessment, examination and intervention [x] Medication orders and management [x] Patient/Family updates as able [x] Care Coordination and Documentation. Diagnoses Respiratory failure with hypoxia J96.91 Acute exacerbation of chronic obstructive pulmonary disease J44.1 Influenza J11.1 Shock R57.9 COPD (chronic obstructive pulmonary disease) J44.9
--- NOTE | 2024-12-09 17:28 | ECG_ITS ---
[facility] Test Date: 2024-12-09 Pat Name: Franny Callahan Department: Room: ED Gender: Female Director Of People: : 1965 Requested By: Andria Weldon Order Number: [id number] Sarahi MD: Bobby Johnson M.D. Measurements Intervals [place] Rate: 94 P: 66 NV: 170 QRS: 15 QRSD: 73 T: 60 QT: 346 QTc: 433 Interpretive Statements SINUS RHYTHM LOW QRS VOLTAGE [QRS DEFLECTION < 0.5/1.0 mV IN LIMB/CHEST LEADS] Compared to ECG 07/08/2022 17:51:54 Low QRS voltage now present Myocardial infarct finding no longer present Electronically Signed On 12-15-2024 13:23:56 [employer] by Bobby Johnson M.D. [email or web address]
[2024-12-09 17:41] LABS: ABG PCO2 42.7 mmHg (35-45); ABG PH Result 7.32 (7.35-7.45); Alveolar-Arterial Oxygen Gradi 9.8 mmHg (5-10); Arterial Blood Gas Hematocrit 36.9 % (37-47); Base Excess ABG -3.8 mmol/L (-2.0-2.0); Blood Gas Allen Test Pos; Blood Gas Operator Identificat MONRO; Blood Gas Sample Site Radial, right; Blood Gas Sample Type Arterial; HCO3 ABG 22.1 mmol/L (22-26); HGB O2 Sat 92.7 % (95-100); Ionized Calcium Level - ABG 1.1 mmol/L (1.1-1.4); Methemoglobin 0.3 % (0.4-1.5); Oxygen Device NC; Oxygen Saturation ABG 93.9; PO2 ABG 72.8 mmHg (80.0-100.0); PO2 FiO2 Ratio Arterial Blood 260; Potassium Level - ABG 3.5 mmol/L (3.5-5.0)
[2024-12-09 18:06] LABS: D Dimer 1.04 ug/mLFEU (0-0.59)
[2024-12-09 18:15] LABS: Lactic Acid level (Lactate) 1.6 mmol/L (0.5-2.2)
[2024-12-09 18:22] LABS: NT Pro B Type Natriuretic Pept 342 pg/mL (0-125); Procalcitonin 0.12 ng/mL (0-0.5); Thyroid Stimulating Hormone 0.61 uIU/mL (0.27-4.20)
[2024-12-09 18:36] LABS: Estmated Average Glucose 146; Hemoglobin A1C 6.7 % (4.0-6.0)
[2024-12-09 18:44] LABS: Cortisol Random 19.92 ug/dL (2.47-19.5)
[2024-12-09] MEDS: nicotine 14 mg Patch 1 PATCH TRANSDERMA (18:52)
[2024-12-09] MEDS: methylPREDNISolone sod succ 40 mg/mL INJ IVP (18:52)
[2024-12-09] MEDS: cefTRIAXone 1,000 mg SDV 1000 MG IVP (18:52)
[2024-12-09] MEDS: pantoprazole 40 mg SDV IVP (18:52)
[2024-12-09] MEDS: oseltamivir phosphate 75 mg Capsule PO (18:54)
[2024-12-09] MEDS: sodium chloride 0.9% 1,000 ML 75 ML IV (18:57)
[2024-12-09 19:05] LABS: Bilirubin Urine Negative (Negative); Blood Urine 2+ (Negative); Glucose Urine UA Negative (Normal); Ketones Urine 2+ (Negative); Leukocyte Esterase Urine Negative (Negative); Nitrate Urine Negative (Negative); Protein Urine Trace (Negative); Specific Gravity, Urine 1.017 (1.005-1.030); Urine Appearance Clear (CLEAR); Urine Color Yellow (Yellow); pH Urine 5.5 (5-7)
[2024-12-09 19:08] LABS: Add Urine Microscopic? YES; Bacteria Urine None Seen /hpf; Hyaline Casts Urine 1.21 /lpf; Squamous Epithelial Cell Urine 0-5 /hpf (0-5); WBC Urine 0-5 /hpf (0-5)
[2024-12-09] MEDS: budesonide 0.5 mg/2 mL Neb INHALATION (19:16)
[2024-12-10] VITALS (83 sets, daily range): BP systolic 72–130; BP diastolic 52–82; PULSE 56–99; RESP 16–36; TEMP 36.3; O2SAT 88–100
[2024-12-10] MEDS: heparin 5,000 unit/mL INJ 1 mL 5000 UNIT SUBCUT ×4 (00:08→22:41)
--- NOTE | 2024-12-10 01:58 | PC.NURSE ---
This nurse spoke with Dr. Alaniz who changed the admission order for the pt from ICU to Med surg.
[2024-12-10] MEDS: methylPREDNISolone sod succ 40 mg/mL INJ IVP ×4 (02:14→21:31)
[2024-12-10] MEDS: ipratropium-albuterol 3 mL Neb INHALATION ×4 (02:55→20:08)
--- NOTE | 2024-12-10 04:43 | PC.NURSE ---
Addendum entered by Nadeen Desai RN 12/10/24 06:13: D/t hypotension developing, Dr. Alaniz verbalized to this RN that the previous ICU admission orders would stand. Primary RN notified. Original Note: This RN spoke with Dr. Alaniz regarding admission status of the pt. Dr. Alaniz agreed that pt is appropriate for MS. verbalized to this RN that she would change the orders prior to leaving current shift.
[2024-12-10] MEDS: sodium chloride 0.9% 500 ML 999 ML IV (05:10)
--- NOTE | 2024-12-10 05:48 | PC.NURSE ---
0500: Patient found to be hypotensive. Dr. Alaniz notified with verbal orders received for a 500ml 0.9% sodium chloride IV bolus over 30 minutes.
[2024-12-10 06:33] LABS: Basophils % 0.2 %; Eosinophils % 0.2 %; Hematocrit 36.6 % (36-47); Lymphocytes % 16.6 %; Mean Corpuscular HGB Conc 31.1 g/dL (30-55); Mean Corpuscular Hemoglobin 29.3 pg (27-33); Mean Corpuscular Volume 94.1 fl (85-98); Monocytes # 0.3 10^3/uL (0.2-0.9); Monocytes % 5.3 %; Neutrophils # 4.64 10^3/uL (1.8-7.7); Neutrophils % 76.7 %; Nucleated Red Blood Cells % 0 %; Platelet Count 234 10^3/cmm (157-399); Red Blood Count 3.89 10^6/uL (3.85-5.65); Red Cell Distribution Width 15.9 % (12.1-15.1); White Blood Count 6.04 10^3/uL (3.29-11.43)
[2024-12-10 06:58] LABS: Alanine Aminotransferase 38 U/L (0-33); Albumin Level 3.2 g/dL (3.5-5.2); Alkaline Phosphatase 68 U/L (35-105); Anion Gap 15.6 (5-19); Aspartate Amino Transferase 71 U/L (0-32); Blood Urea Nitrogen 11 mg/dL (8-23); Calcium 7.7 mg/dL (8.5-10.5); Carbon Dioxide 20 mmol/L (22-29); Chloride 107 mmol/L (98-107); Creatinine Clr Calc Pharmacy 85.9325; Globulin 2.7 g/dL (1.3-4.6); Glucose 196 mg/dL (65-115); Magnesium 1.7 mg/dL (1.7-2.3); Osmolality Calculated 293 mOsm/kg (285-295); Phosphorus 2.5 mg/dL (2.5-4.5); Potassium 3.6 mmol/L (3.5-5.1); Sodium 139 mmol/L (136-145); Total Bilirubin 0.2 mg/dL (0.15-1.2); Total Protein 5.9 g/dL (6.6-8.7)
[2024-12-10 06:59] LABS: Cholesterol 158 mg/dL (0-200); HDL Cholesterol 31 mg/dL (60-100); LDL Cholesterol Calculated 99 mg/dL (50-129); LDL HDL Ratio 3.19 RATIO (0.00-3.22); Triglycerides 141 mg/dL (0-150)
[2024-12-10 07:05] LABS: Procalcitonin 0.13 ng/mL (0-0.5)
--- NOTE | 2024-12-10 07:08 | PC.NURSE ---
Assumed care of patient from Idris Qureshi RN @ [phone]
[2024-12-10] MEDS: budesonide 0.5 mg/2 mL Neb INHALATION ×2 (07:10→20:08)
[2024-12-10] MEDS: oseltamivir phosphate 75 mg Capsule PO ×2 (09:00→19:25)
--- NOTE | 2024-12-10 11:00 | PC.NURSE ---
this nurse assumed pt care from VIVEK Gordon at 1100.
[2024-12-10] MEDS: sodium chloride 0.9% 1,000 ML 75 ML IV (13:05)
--- NOTE | 2024-12-10 13:54 | P.PN_ITS ---
Subjective 2 Subjective: Seen this morning. No acute events overnight. Requiring 2 L nasal cannula. States she is not on any oxygen at home. Wanting to know her echo results. They have not resulted yet. Vitals/I&O/Wt Last Vital Signs Temp 98.1 F 12/09/24 12:09 Pulse 84 12/10/24 13:22 Resp 24 H 12/10/24 13:22 BP 116/70 12/10/24 12:00 Pulse Ox 98 12/10/24 13:22 O2 Del Method Nasal Cannula 12/10/24 13:22 O2 Flow Rate 2 12/10/24 13:22 12/09/24 12/10/24 12/10/24 22:59 06:59 14:59 Intake Total 3000 / 3000 499.5 / 3499.5 1000 / 1000 Output Total 1300 / 1300 Balance 3000 / 3000 -800.5 / 2199.5 1000 / 1000 Weight last 48 hrs Weight 54.431 kg Physical Exam 2 Narrative: General: No acute distress, AO x3, dehydrated HEENT: PERRLA, pupils bilaterally equal and reactive, pallors not present Chest: B/L wheezing CVS: S1-S2 regular, no murmurs, no tachycardia, no gallops, no rubs Abdomen: Soft, nontender, no organomegaly, bowel sounds present Neuro: No focal deficits, no facial deformity, AO x3, Urinary Catheter Management: Demarco: Cath Placed During This Visit: yes Reason for Continuing Indwelling Catheter: Accurate Measurement of Urinary Output in Critically Ill Patients Urinary Catheter Date of Insertion: 12/09/24 Urinary Catheter Time of Insertion: 18:25 Data 12/10/24 05:56 12/10/24 05:56 Micro: Microbiology 12/09/24 17:46 Blood Culture - Preliminary Blood SPECIMEN COLLECTED 12/09/24 17:44 Blood Culture - Preliminary Blood SPECIMEN COLLECTED A&P Assessment and plan (1) Respiratory failure with hypoxia: Most likely in setting of COPD exacerbation from influenza A. Oxygen supplementation keeping saturation over 90%. Associated with shock. Check ABG. Check sputum culture, D-dimer, lactate, proBNP, procalcitonin. (2) Acute exacerbation of chronic obstructive pulmonary disease: Solu-Medrol 40 mg every 6 hour. Will plan to de-escalate within next 24 to 48 hours. Pulmicort twice daily, ipratropium every 6 hour. (3) Influenza: Found to be positive on viral panel. Associated with respiratory failure and shock. Start on Tamiflu 75 mg twice daily. Supportive treatment with aggressive pulmonary toilet with I-S and Acapella. Out of bed to chair. (4) Shock: Unknown cause. Check lactate, blood culture, cortisol level, D-dimer, procalcitonin. Patient does not have leukocytosis. Depending on D-dimer plan for CTA. Received 2 L of IV fluid bolus in the ER. Will give 1 more liter IV fluid bolus. Check echocardiogram. Normal saline at 75 cc/h. Levophed as needed for mean blood pressure to be maintained over 65. Monitor renal functions. Empirically for now start patient on IV ceftriaxone 1 g daily. Demarco catheterization to monitor urine output. (5) COPD (chronic obstructive pulmonary disease): Chronic smoker. Nicotine patch as needed. Counseled in detail with the patient about trying to quit smoking. Plan Full code Regular diet Protonix OPD prophylaxis Heparin 5000 every 12 for DVT prophylaxis Admit to ICU given concerns for shock. 12/10/2024 -Awaiting ICU bed at this time. Patient's blood pressure has been soft. ? Continue IV fluids. ? Placed on Levophed as needed to keep MAP above 65. ? Continue Tamiflu ? Continue IV steroids ? Echo pending at this time. ? Agree with assessment and plan from H&P. Attestations 2 Medical Necessity Statement*: COPD exacerbation. Diagnoses Respiratory failure with hypoxia J96.91 Acute exacerbation of chronic obstructive pulmonary disease J44.1 Influenza J11.1 Shock R57.9 COPD (chronic obstructive pulmonary disease) J44.9
--- NOTE | 2024-12-10 17:36 | USCV_ITS ---
Franny Callahan Age: 59 Gender: F : 1965 Exam Date: 12/10/2024 08:31 Ordering Phys: Andria Weldon MD Technologist: Exam Location[place] [facility] [place]: cp BP: 106 / 65 HR: 71 Rhythm: Sinus Technical Quality: Adequate MEASUREMENTS (Male / Female) Normal Values 2D ECHO LV Diastolic Diameter PLAX 3.8 cm 4.2 - 5.9 / 3.9 - 5.3 cm IVS Diastolic Thickness 1.0 cm 0.6 - 1.0 / 0.6 - 0.9 cm IVS Systolic Thickness 1.7 cm LVPW Diastolic Thickness 1.1 cm 0.6 - 1.0 / 0.6 - 0.9 cm LVPW Systolic Thickness 1.4 cm LVOT Diameter 2.1 cm LV Ejection Fraction 2D Teich 55.6 % LV Ejection Fraction MOD 4C 56.1 % LA Diameter 2.5 cm RA Systolic Volume 4C AL 19.5 ml RA Systolic Volume 4C MOD 18.4 ml LA Sys Volume AL 24.8 cm cubed LA Sys Volume Index AL 15.2 cm cubed/m squared Aorta at Sinotubular Diameter 2.7 cm M-MODE LA Ao Ratio MM 0.8 AV Cusp Separation MM 2.1 cm DOPPLER AV Peak Velocity 129.0 cm/s AV Area Cont Eq vti 2.5 cm squared AV Area Cont Eq pk 2.7 cm squared MV Area PHT 7.3 cm squared Mitral E to A Ratio 1.0 TV Peak Velocity 186.0 cm/s TR Peak Velocity 221.0 cm/s TR Peak Gradient 19.5 mmHg TV Peak E Velocity 97.0 cm/s PV Peak Velocity 101.0 cm/s FINDINGS Left Ventricle Normal left ventricular size, systolic function and wall thickness, with no regional wall motion abnormalities. Left ventricular ejection fraction is estimated at 60 %. Grade I/IV diastolic dysfunction (abnormal relaxation filling pattern), normal to mildly elevated filling pressures. Right Ventricle The right ventricle is normal in size and function. Right Atrium The right atrium is normal in size. Left Atrium The left atrium is normal in size. Mitral Valve Structurally normal mitral valve without significant stenosis or prolapse. There is no mitral regurgitation. Aortic Valve Mild aortic valve calcification. No aortic valve stenosis. Trace aortic valve regurgitation. Tricuspid Valve Mild tricuspid valve regurgitation. Pulmonic Valve Structurally normal pulmonic valve without significant stenosis. There is no pulmonic regurgitation. Pericardium Normal pericardium without effusion. Aorta Normal ascending aorta dimension. IVC The inferior vena cava appears normal. CONCLUSIONS Normal left ventricular size, systolic function and wall thickness, with no regional wall motion abnormalities. Left ventricular ejection fraction is estimated at 60 %. Grade I/IV diastolic dysfunction (abnormal relaxation filling pattern), normal to mildly elevated filling pressures. No significant valve abnormalities. There is no pericardial effusion. Right atrial pressure is around 5 mm of mercury. Ciro Lerma MD (Electronically Signed) Final Date: 11 December 2024 01:13 S
[2024-12-10] MEDS: pantoprazole 40 mg SDV IVP (19:25)
[2024-12-10] MEDS: cefTRIAXone 1,000 mg SDV 1000 MG IVP (19:25)
[2024-12-10] MEDS: nicotine 14 mg Patch 1 PATCH TRANSDERMA (19:25)
[2024-12-11] VITALS (43 sets, daily range): BP systolic 79–153; BP diastolic 54–90; PULSE 57–93; RESP 17–31; TEMP 36.4–36.9; O2SAT 84–100
[2024-12-11] MEDS: ipratropium-albuterol 3 mL Neb INHALATION ×4 (01:49→19:20)
[2024-12-11] MEDS: sodium chloride 0.9% 1,000 ML 75 ML IV (02:09)
[2024-12-11 04:16] LABS: Basophils % 0.1 %; Eosinophils % 0.1 %; Hematocrit 36.8 % (36-47); Lymphocytes # 1.8 10^3/uL (0.8-4.8); Lymphocytes % 10.9 %; Mean Corpuscular HGB Conc 31.5 g/dL (30-55); Mean Corpuscular Hemoglobin 29.4 pg (27-33); Mean Corpuscular Volume 93.2 fl (85-98); Mean Platelet Volume 11.1 fL (7.4-10.4); Monocytes # 0.8 10^3/uL (0.2-0.9); Monocytes % 4.8 %; Neutrophils # 13.53 10^3/uL (1.8-7.7); Neutrophils % 82.9 %; Nucleated Red Blood Cells % 0 %; Platelet Count 280 10^3/cmm (157-399); Red Blood Count 3.95 10^6/uL (3.85-5.65); Red Cell Distribution Width 16.4 % (12.1-15.1); White Blood Count 16.32 10^3/uL (3.29-11.43)
[2024-12-11 04:35] LABS: Anion Gap 16.9 (5-19); Blood Urea Nitrogen 14 mg/dL (8-23); Calcium 8.4 mg/dL (8.5-10.5); Carbon Dioxide 21 mmol/L (22-29); Chloride 107 mmol/L (98-107); Creatinine Clr Calc Pharmacy 69.7614; Glomerular Filtration Rate 73.2 mL/min (90-130); Glucose 239 mg/dL (65-115); Osmolality Calculated 300 mOsm/kg (285-295); Potassium 3.9 mmol/L (3.5-5.1); Sodium 141 mmol/L (136-145)
[2024-12-11] MEDS: heparin 5,000 unit/mL INJ 1 mL 5000 UNIT SUBCUT ×2 (06:41→14:58)
[2024-12-11] MEDS: methylPREDNISolone sod succ 40 mg/mL INJ IVP ×3 (06:42→22:12)
--- NOTE | 2024-12-11 08:20 | CT_ITS ---
WS: [id number] CTA OF THE CHEST WITH PULMONARY EMBOLISM PROTOCOL TECHNIQUE: High-resolution contrast enhanced CTA of the chest with coronal and sagittal reformatted i mages with pulmonary embolism protocol. MIP images are also reviewed. CLINICAL INFORMATION: r/o PE COMPARISON: None. DLP: 348.[address] scans at [facility] use at least one of these dose optimization techniques: automated e xposure control; mA and/or kV adjustment per patient size (includes targeted exams where dose is matc hed to clinical indication); or iterative reconstruction. FINDINGS: Proximal main pulmonary arteries are normal. Normal segmental and subsegmental pulmonary arteries. No evidence of pulmonary embolus. Lungs are well aerated. Slight bibasal atelectasis. Diffuse fatty inf iltration of the liver. Small esophageal hiatal hernia. Splenic artery calcification. Partially visualized RIGHT thyroid low-attenuation mass/nodule measuring 3.6 cm in greatest dimension . This can be followed up with ultrasound on an elective basis. CT/CT angio chest PE protcl [id number] IMPRESSION: 1. No evidence for pulmonary embolus. 2. Lungs are well aerated although somewhat shallow inspiration. Slight bibas ilar atelectasis. No focal pneumonia.
[2024-12-11] MEDS: budesonide 0.5 mg/2 mL Neb INHALATION ×2 (09:05→19:20)
[2024-12-11] MEDS: oseltamivir phosphate 75 mg Capsule PO ×2 (09:08→18:17)
--- NOTE | 2024-12-11 09:20 | P.PN_ITS ---
Documented by User: Tremaine Hidalgo 12/11/24 11:45 Subjective 2 Subjective: Patient was seen this morning. No acute overnight events. She is on 2L nasal cannula this morning. She reports coughing up clear sputum. She states that she feels better this morning. Denies chest pain, headache, dizziness, abdominal pain, N/V/D. Vitals/I&O/Wt Last Vital Signs Temp 97.5 F L 12/11/24 05:06 Pulse 75 12/11/24 09:05 Resp 18 12/11/24 09:05 BP 88/71 12/11/24 06:00 Pulse Ox 100 12/11/24 09:05 O2 Del Method Nasal Cannula 12/11/24 09:05 O2 Flow Rate 2 12/11/24 09:05 12/10/24 12/11/24 12/11/24 22:59 06:59 14:59 Intake Total 541.25 / 1541.25 786.25 / 2327.50 Output Total 450 / 450 Balance 541.25 / 1541.25 336.25 / 1877.50 Weight last 48 hrs Weight 67.086 kg Weight 65.68 kg Weight 54.431 kg Physical Exam 2 Resp: COMMON NORMALS: normal respiratory effort OTHER: mild R-sided wheezing Cardio: COMMON NORMALS: regular rate, regular rhythm, S1 normal heart sound present and S2 normal heart sound present RATE: regular rate RHYTHM: r egular rhythm HEART SOUNDS: S1 normal heart sound present and S2 normal heart sound present GI: COMMON NORMALS: Normal to inspection, nondistended, normoactive bowel sounds present, Soft to palpation and non-tender PALPATION: Yes Soft to palpation Skin: RASHES: no rashes Urinary Catheter Management: Demarco: Cath Placed During This Visit: yes Reason for Continuing Indwelling Catheter: Accurate Measurement of Urinary Output in Critically Ill Patients Urinary Catheter Date of Insertion: 12/09/24 Urinary Catheter Time of Insertion: 18:25 Data 12/11/24 03:39 12/11/24 03:39 Micro: Microbiology 12/09/24 17:46 Blood Culture - Preliminary Blood NEGATIVE TO DATE 12/09/24 17:44 Blood Culture - Preliminary Blood NEGATIVE TO DATE A&P Assessment and plan (1) Influenza: (2) Acute exacerbation of chronic obstructive pulmonary disease: (3) COPD (chronic obstructive pulmonary disease): (4) Respiratory failure with hypoxia: Plan (1) Respiratory failure with hypoxia: Most likely in setting of COPD exacerbation from influenza A. Oxygen supplementation keeping saturation over 90%. Associated with shock. Checked ABG. (2) Acute exacerbation of chronic obstructive pulmonary disease: Solu-Medrol 40 mg every 6 hour. Will plan to de-escalate within next 24 hours. Pulmicort twice daily, ipratropium every 6 hour. (3) Influenza: Found to be positive on viral panel. Associated with respiratory failure and shock. Continue Tamiflu 75 mg twice daily. Supportive treatment with aggressive pulmonary toilet with I-S and Acapella. Out of bed to chair. (4) Shock: Unknown cause. Check lactate, blood culture, cortisol level, D-dimer, procalcitonin. - blood culture negative to date - lactate and procalcitonin were within normal range (12/10) - Patient does not have leukocytosis. Depending on D-dimer plan for CTA. - D-dimer was 1.04 (12/09) Received 2 L of IV fluid bolus in the ER. Received 1 more liter IV fluid bolus. Echocardiogram performed. Showed normal systolic function and LV size. EF 60%. Grade I/IV diastolic dysfunction. No significant valve abnormalities. Normal saline at 75 cc/h. Levophed as needed for mean blood pressure to be maintained over 65. Monitor renal functions. Empirically on IV ceftriaxone 1 g daily. Demarco catheterization to monitor urine output. (5) COPD (chronic obstructive pulmonary disease): - Chronic smoker. - Nicotine patch as needed. - Counseled in detail with the patient about trying to quit smoking. Plan Full code Regular diet Protonix OPD prophylaxis Heparin 5000 every 12 for DVT prophylaxis Admit to ICU given concerns for shock. Coding Level of Care Code 57898 Diagnoses Influenza J11.1 Acute exacerbation of chronic obstructive pulmonary disease J44.1 COPD (chronic obstructive pulmonary disease) J44.9 Respiratory failure with hypoxia J96.91 Documented by User: Sue Jensen MD 12/11/24 12:11 Subjective 2 Subjective: Patient is now on room air. She reports coughing up clear sputum. She feels better this morning denies chest pain headache dizziness abdominal pain nausea vomiting diarrhea. LVEF 60%, grade 1 diastolic dysfunction. Physical Exam 2 Narrative: General: No acute distress, AO x3,, on room air at this time. HEENT: PERRLA, pupils bilaterally equal and reactive, pallors not present Chest: B/L wheezing however improved significantly since yesterday. CVS: S1-S2 regular, no murmurs, no tachycardia, no gallops, no rubs Abdomen: Soft, nontender, no organomegaly, bowel sounds present Neuro: No focal deficits, no facial deformity, AO x3, Urinary Catheter Management: Demarco: Cath Placed During This Visit: yes Data 12/11/24 03:39 12/11/24 03:39 A&P Assessment and plan (1) Influenza: (2) Acute exacerbation of chronic obstructive pulmonary disease: (3) COPD (chronic obstructive pulmonary disease): (4) Respiratory failure with hypoxia: Plan (1) Respiratory failure with hypoxia: Most likely in setting of COPD exacerbation from influenza A. Oxygen supplementation keeping saturation over 90%. Associated with shock. Checked ABG. (2) Acute exacerbation of chronic obstructive pulmonary disease: Solu-Medrol 40 mg every 6 hour. Will plan to de-escalate within next 24 hours. Pulmicort twice daily, ipratropium every 6 hour. (3) Influenza: Found to be positive on viral panel. Associated with respiratory failure and shock. Continue Tamiflu 75 mg twice daily. Supportive treatment with aggressive pulmonary toilet with I-S and Acapella. Out of bed to chair. (4) Shock: Unknown cause. Check lactate, blood culture, cortisol level, D-dimer, procalcitonin. - blood culture negative to date - lactate and procalcitonin were within normal range (12/10) - Patient does not have leukocytosis. Depending on D-dimer plan for CTA. - D-dimer was 1.04 (12/09) Received 2 L of IV fluid bolus in the ER. Received 1 more liter IV fluid bolus. Echocardiogram performed. Showed normal systolic function and LV size. EF 60%. Grade I/IV diastolic dysfunction. No significant valve abnormalities. Normal saline at 75 cc/h. Levophed as needed for mean blood pressure to be maintained over 65. Monitor renal functions. Empirically on IV ceftriaxone 1 g daily. Demarco catheterization to monitor urine output. (5) COPD (chronic obstructive pulmonary disease): - Chronic smoker. - Nicotine patch as needed. - Counseled in detail with the patient about trying to quit smoking. Plan Full code Regular diet Protonix OPD prophylaxis Heparin 5000 every 12 for DVT prophylaxis Admit to ICU given concerns for shock. 12/10/2024 -Awaiting ICU bed at this time. Patient's blood pressure has been soft. ? Continue IV fluids. ? Placed on Levophed as needed to keep MAP above 65. ? Continue Tamiflu ? Continue IV steroids ? Echo pending at this time. ? Agree with assessment and plan from H&P. 12/11/2024 Patient blood pressures have been soft however MAP has been greater than 65. Continue IV fluids at this time. Continue Tamiflu continue IV steroids. Echo reviewed. Patient does have evidence of diastolic heart failure however clinically is not in heart failure exacerbation at this time and is euvolemic. D-dimer 1.04. CTA chest ordered to rule out PE. ? Procalcitonin negative Blood cultures, negative to date ? Lactate normal range. ? Continue 1 g ceftriaxone daily, add azithromycin 500 daily for COPD exacerbation ? If patient continues to improve we will consider discharge home in a.m. ? May transfer to floor today. Patient is now on room air. ? Continue DuoNeb every 6 hours as needed. This patient was evaluated with the medical student. Agree with his assessment and plan. Attestations 2 Medical Necessity Statement*: Plan to discharge home in a.m. if continues to show improvement. Diagnoses Influenza J11.1 Acute exacerbation of chronic obstructive pulmonary disease J44.1 COPD (chronic obstructive pulmonary disease) J44.9 Respiratory failure with hypoxia J96.91
[2024-12-11] MEDS: methylPREDNISolone sod succ 125 mg/2 mL INJ 60 MG IVP (10:46)
[2024-12-11] MEDS: diphenhydrAMINE 50 mg/mL SDV 1mL 25 MG IVP (10:46)
[2024-12-11] MEDS: iohexol 350 mg/mL 500 mL Btl (per mL) IV (11:12)
[2024-12-11] MEDS: nicotine 14 mg Patch 1 PATCH TRANSDERMA (18:13)
[2024-12-11] MEDS: azithromycin 250 mg Tablet 500 MG PO (18:14)
[2024-12-11] MEDS: pantoprazole 40 mg SDV IVP (18:14)
[2024-12-11] MEDS: cefTRIAXone 1,000 mg SDV 1000 MG IVP (18:14)
[2024-12-11 20:20] LABS: Glucose Point of Care 333 mg/dL (70-110)
[2024-12-11] MEDS: acetaminophen 325 mg Tablet 650 MG PO (22:12)
[2024-12-12] MEDS: heparin 5,000 unit/mL INJ 1 mL 5000 UNIT SUBCUT (00:14)
[2024-12-12 04:00] VITALS: BP 154/81; PULSE 80; RESP 16; TEMP 36.7; O2SAT 95
[2024-12-12 06:09] LABS: Glucose Point of Care 154 mg/dL (70-110)
[2024-12-12 06:42] LABS: Basophils # 0.1 10^3/uL (0.0-0.1); Basophils % 0.3 %; Eosinophils % 0.1 %; Hematocrit 37.6 % (36-47); Lymphocytes # 2.3 10^3/uL (0.8-4.8); Lymphocytes % 13.2 %; Mean Corpuscular HGB Conc 32.4 g/dL (30-55); Mean Corpuscular Volume 89.5 fl (85-98); Mean Platelet Volume 10.8 fL (7.4-10.4); Monocytes % 5.5 %; Neutrophils # 13.43 10^3/uL (1.8-7.7); Neutrophils % 75.7 %; Nucleated Red Blood Cells # 0.1 /100WBC; Nucleated Red Blood Cells % 0.3 %; Platelet Count 291 10^3/cmm (157-399); Red Cell Distribution Width 16.3 % (12.1-15.1); White Blood Count 17.73 10^3/uL (3.29-11.43)
[2024-12-12 07:04] LABS: Anion Gap 16.4 (5-19); Blood Urea Nitrogen 14 mg/dL (8-23); Calcium 8.5 mg/dL (8.5-10.5); Carbon Dioxide 24 mmol/L (22-29); Chloride 103 mmol/L (98-107); Creatinine Clr Calc Pharmacy 87.9889; Glucose 155 mg/dL (65-115); Magnesium 1.9 mg/dL (1.7-2.3); Osmolality Calculated 294 mOsm/kg (285-295); Potassium 3.4 mmol/L (3.5-5.1); Sodium 140 mmol/L (136-145)
[2024-12-12 07:27] VITALS: BP 135/78; PULSE 71; RESP 16; TEMP 36.7; O2SAT 92
[2024-12-12 07:44] LABS: Slide Review Slide Review Perform
[2024-12-12] MEDS: ipratropium-albuterol 3 mL Neb INHALATION (08:27)
[2024-12-12] MEDS: budesonide 0.5 mg/2 mL Neb INHALATION (08:28)
[2024-12-12 08:29] VITALS: PULSE 89; RESP 18; O2SAT 90
[2024-12-12 08:34] VITALS: PULSE 95
[2024-12-12] MEDS: azithromycin 250 mg Tablet 500 MG PO (08:41)
[2024-12-12] MEDS: oseltamivir phosphate 75 mg Capsule PO (08:42)
[2024-12-12] MEDS: potassium chloride ER 20 mEq Tablet 40 MEQ PO (09:38)
--- NOTE | 2024-12-12 10:12 | PC.SOCIAL ---
IMM Updated Updated pt on IMM. No questions voiced. Provided pt a copy. Initialed, dated, & timed a copy & placed in chart.
[2024-12-12 10:46] VITALS: O2SAT 90; O2SAT 91
[2024-12-12 11:15] VITALS: BP 154/81; PULSE 80; RESP 16; TEMP 36.7; O2SAT 95
--- NOTE | 2024-12-12 11:45 | PM.DCS ---
Documented by User: Tremaine Hidalgo 12/12/24 12:22 Discharge Providers Date of Admission: 12/09/24 16:58 Date of Discharge: December 12, 2024 Attending Provider at Admission: Andria Weldon MD Attending Provider at Discharge: Sue Jensen MD Primary Care Provider: Asaf Nails MD Diagnoses at Discharge Discharge Diagnosis (1) Influenza: Status: Acute (2) Acute exacerbation of chronic obstructive pulmonary disease: Status: Acute (3) COPD (chronic obstructive pulmonary disease): Status: Acute (4) Respiratory failure with hypoxia: Status: Acute Reason for Visit Reason for Visit: coughing, hurting all over Hospital Course Hospital Course Franny Callahan is a 59-year-old female with history of COPD. She presented to ER on 12/09/2024 after not feeling well 3 days prior to arriving to ER, reporting that her son-in-law was sick recently. She stated generalized bodyaches, nausea, nonproductive cough, shortness of breath with exertion upon arrival. She stated that she did not require oxygen at home and was placed on 2L nasal cannula on day of admission. In the ER she was found to be hypotensive with blood pressure persistently in 80 systolics even after 2 L of IV fluid bolus. She was treated with fluid bolus, steroid and nebulization treatment. Test for Influenza Type A came back positive and patient was started on 5 day course tamiflu. She was admitted to ICU and monitored. She was on duoneb and pulmicort along with ceftriaxone. Azithromycin 500mg PO daily was added on 12/11. Chest x-ray showed evidence of pulmonary atelectasis or acute infiltrates within lower chest bilaterally. Chest CTA was performed and showed no evidence of PE or focal pneumonia. Echo showed normal left ventricular size, systolic function and wall thickness, with no regional wall motion abnormalities. LV EF was estimated at 60%. Grade I/IV diastolic dysfunction with no significant valve abnormalities and no pericardial effusion. Blood cultures are negative to date and lactate was within normal range. She was able to saturated well on room air on 12/11 and was transferred to floor. She is doing well this AM (12/12) and is ready for discharge. Physical Exam Const: COMMON NORMALS: no acute distress, patient oriented x3 and alert Resp: COMMON NORMALS: normal respiratory effort and clear to auscultation bilaterally AUSCULTATION: clear to auscultation bilaterally Cardio: COMMON NORMALS: regular rate and regular rhythm RATE: regular rate RHYTHM: regular rhythm Extremity: COMMON NORMALS: capillary refill normal Neuro: COMMON NORMALS: patient oriented x3 SENSORIUM/ORIENTATION: Yes alert Urinary Catheter Management: Demarco: Cath Placed During This Visit: yes, but has since been removed by the nurse Reason for Continuing Indwelling Catheter: Decision to DC Catheter Urinary Catheter Date of Insertion: 12/09/24 Urinary Catheter Time of Insertion: 18:25 Date Urinary Catheter Removed: 12/12/24 Time Urinary Catheter Discontinued: 10:00 Discharge Data Studies Completed and Pending Completed Studies During Hospitalization Category Date Time Status CTA chest [CT angio chest PE protcl [id number]] Stat Cat Scan 12/11/24 08:20 Completed XR chest 1V portable [id number] Stat Exams 12/09/24 12:44 Completed CV. echo complete* [id number] Routine Ultrasound 12/10/24 17:36 Completed Pending at discharge Category Date Time Status Blood Culture Stat Lab 12/09/24 17:46 Results Radiology Impressions Chest X-Ray 12/09/24 12:44 IMPRESSION: Pulmonary atelectasis or acute infiltrates within lower chest bilaterally. Chest CTA 12/11/24 08:20 IMPRESSION: 1. No evidence for pulmonary embolus. 2. Lungs are well aerated although somewhat shallow inspiration. Slight bibasilar atelectasis. No focal pneumonia. Laboratory Results WBC 17.73 10^3/uL (3.29-11.43) H 12/12/24 06:00 RBC 4.20 10^6/uL (3.85-5.65) 12/12/24 06:00 Hgb 12.20 g/dL (11.27-16.99) 12/12/24 06:00 Hct 37.6 % (36-47) 12/12/24 06:00 MCV 89.5 fl (85-98) 12/12/24 06:00 MCH 29.0 pg (27-33) 12/12/24 06:00 MCHC 32.4 g/dL (30-55) 12/12/24 06:00 RDW 16.3 % (12.1-15.1) H 12/12/24 06:00 Plt Count 291 10^3/cmm (157-399) 12/12/24 06:00 MPV 10.8 fL (7.4-10.4) H 12/12/24 06:00 Neut % (Auto) 75.7 % 12/12/24 06:00 Lymph % (Auto) 13.2 % 12/12/24 06:00 Reeves % (Auto) 5.5 % 12/12/24 06:00 Eos % (Auto) 0.1 % 12/12/24 06:00 Baso % (Auto) 0.3 % 12/12/24 06:00 Neut # (Auto) 13.43 10^3/uL (1.8-7.7) H 12/12/24 06:00 Lymph # (Auto) 2.3 10^3/uL (0.8-4.8) 12/12/24 06:00 Reeves # (Auto) 1.0 10^3/uL (0.2-0.9) H 12/12/24 06:00 Eos # (Auto) 0.0 10^3/uL (0.0-0.8) 12/12/24 06:00 Baso # (Auto) 0.1 10^3/uL (0.0-0.1) 12/12/24 06:00 Nucleated RBC % (auto) 0.3 % 12/12/24 06:00 Nucleated RBCs # 0.1 /100WBC 12/12/24 06:00 D-Dimer 1.04 ug/mLFEU (0-0.59) H 12/09/24 17:44 Specimen Type Arterial 12/09/24 17:39 Sample Site Radial, right 12/09/24 17:39 ABG pH 7.32 (7.35-7.45) L 12/09/24 17:39 ABG pCO2 42.7 mmHg (35-45) 12/09/24 17:39 ABG pO2 72.8 mmHg (80.0-100.0) L 12/09/24 17:39 ABG PO2/FiO2 Ratio 260 12/09/24 17:39 ABG HCO3 22.1 mmol/L (22-26) 12/09/24 17:39 ABG O2 Saturation 93.9 12/09/24 17:39 ABG Base Excess -3.8 mmol/L (-2.0-2.0) L 12/09/24 17:39 Eddie Test Pos 12/09/24 17:39 A-a O2 Gradient 9.8 mmHg (5-10) 12/09/24 17:39 Hematocrit 36.9 % (37-47) L 12/09/24 17:39 Hgb O2 Saturation 92.7 % (95-100) L 12/09/24 17:39 Carboxyhemoglobin 1.0 %THgb (0.4-20.1) 12/09/24 17:39 Methemoglobin 0.3 % (0.4-1.5) L 12/09/24 17:39 Total Hemoglobin 12.0 g/dL (12-16) 12/09/24 17:39 Sodium 140.0 mmol/L (131-143) 12/09/24 17:39 Potassium 3.5 mmol/L (3.5-5.0) 12/09/24 17:39 Glucose 161.0 mg/dL (70-115) H 12/09/24 17:39 Ionized Calcium 1.1 mmol/L (1.1-1.4) 12/09/24 17:39 O2 Delivery Device Nc 12/09/24 17:39 O2 Liters/Min 2.0 % 12/09/24 17:39 FiO2 28.0 % 12/09/24 17:39 Stitcher Set Up Operator Automatic ID Monro 12/09/24 17:39 Sodium 140 mmol/L (136-145) 12/12/24 06:00 Potassium 3.4 mmol/L (3.5-5.1) L 12/12/24 06:00 Chloride 103 mmol/L (98-107) 12/12/24 06:00 Carbon Dioxide 24 mmol/L (22-29) 12/12/24 06:00 Anion Gap 16.4 (5-19) 12/12/24 06:00 BUN 14 mg/dL (8-23) 12/12/24 06:00 Creatinine 0.6 mg/dL (0.5-0.9) 12/12/24 06:00 GFR Calculation 102.0 mL/min (90-130) 12/12/24 06:00 Glucose 155 mg/dL (65-115) H 12/12/24 06:00 POC Glucose 154 mg/dL (70-110) H 12/12/24 06:01 Estimat Average Glucose 146 12/09/24 17:44 Hemoglobin A1c 6.7 % (4.0-6.0) H 12/09/24 17:44 Calculated Osmolality 294 mOsm/kg (285-295) 12/12/24 06:00 Lactic Acid Cancelled 12/09/24 17:44 Lactic Acid (Sepsis) 1.6 mmol/L (0.5-2.2) 12/09/24 17:44 Calcium 8.5 mg/dL (8.5-10.5) 12/12/24 06:00 Phosphorus 2.5 mg/dL (2.5-4.5) 12/10/24 05:56 Magnesium 1.9 mg/dL (1.7-2.3) 12/12/24 06:00 Total Bilirubin 0.2 mg/dL (0.15-1.2) 12/10/24 05:56 AST 71 U/L (0-32) H 12/10/24 05:56 ALT 38 U/L (0-33) H 12/10/24 05:56 Alkaline Phosphatase 68 U/L (35-105) 12/10/24 05:56 NT-Pro-B Natriuret Pep 342 pg/mL (0-125) H 12/09/24 17:44 Total Protein 5.9 g/dL (6.6-8.7) L 12/10/24 05:56 Albumin 3.2 g/dL (3.5-5.2) L 12/10/24 05:56 Globulin 2.7 g/dL (1.3-4.6) 12/10/24 05:56 Triglycerides 141 mg/dL (0-150) 12/10/24 05:56 Cholesterol 158 mg/dL (0-200) 12/10/24 05:56 LDL Cholesterol, Calc 99 mg/dL (50-129) 12/10/24 05:56 HDL Cholesterol 31 mg/dL (60-100) L 12/10/24 05:56 LDL/HDL Ratio 3.19 RATIO (0.00-3.22) 12/10/24 05:56 Cholesterol/HDL Ratio 5.10 mg/dL (0.0-4.40) H 12/10/24 05:56 Procalcitonin 0.13 ng/mL (0-0.5) 12/10/24 05:56 TSH 0.61 uIU/mL (0.27-4.20) 12/09/24 17:44 Random Cortisol 19.92 ug/dL (2.47-19.5) H 12/09/24 17:44 Urine Color Yellow (Yellow) 12/09/24 18:36 Urine Appearance Clear (CLEAR) 12/09/24 18:36 Urine pH 5.5 (5-7) 12/09/24 18:36 Ur Specific Semmes 1.017 (1.005-1.030) 12/09/24 18:36 Urine Protein Trace (Negative) A 12/09/24 18:36 Urine Glucose (UA) Negative (Normal) 12/09/24 18:36 Urine Ketones 2+ (Negative) H 12/09/24 18:36 Urine Blood 2+ (Negative) A 12/09/24 18:36 Urine Nitrate Negative (Negative) 12/09/24 18:36 Urine Bilirubin Negative (Negative) 12/09/24 18:36 Urine Urobilinogen 1.0 mg/dL (Negative) 12/09/24 18:36 Ur Leukocyte Esterase Negative (Negative) 12/09/24 18:36 Urine RBC 3-5 /hpf (0-2) 12/09/24 18:36 Urine WBC 0-5 /hpf (0-5) 12/09/24 18:36 Ur Squamous Epith Cells 0-5 /hpf (0-5) 12/09/24 18:36 Amorphous Sediment Not Reportable 12/09/24 18:36 Urine Bacteria None seen /hpf (NONE) 12/09/24 18:36 Hyaline Casts 1.21 /lpf 12/09/24 18:36 Influenza Type A Ag Positive (Negative) H 12/09/24 12:23 Influenza Type B Ag Negative (Negative) 12/09/24 12:23 Vitals Last Vital Signs Temp 98.1 F 12/12/24 11:15 Pulse 80 12/12/24 11:15 Resp 16 12/12/24 11:15 BP 154/81 12/12/24 11:15 Pulse Ox 95 12/12/24 11:15 O2 Del Method Room Air 12/12/24 08:29 O2 Flow Rate 1 12/11/24 19:27 Discharge Plan Discharge Patient Disposition: Home Condition: Stable Prescriptions: New oseltamivir 75 mg Capsule 75 mg PO BID Qty: 3 0RF levofloxacin 750 mg tablet 750 mg PO DAILY 2 Days Qty: 2 0RF prednisone 20 mg tablet See Rx Instructions .ROUTE .COMPLEX Qty: 8 0RF Rx Instructions: prednisone 40 bid x1 day 40 mg daily x 2d then stop Continued Trelegy Ellipta 100-62.5-25 mcg blister with device 1 inh INHALATION DAILY albuterol sulfate [Ventolin HFA] 90 mcg/actuation HFA aerosol inhaler 2 puff INHALATION QID PRN (Reason: Shortness Of Breath) Discharge Orders: Discharge Order (Routine); Ordered 12/12/24 Ordered By: Sue Jensen Referrals: Asaf Nails MD [Primary Care Provider] - 12/19/24 11:00 am Discharge Diet: Usual diet Discharge Activity: Increase activity as tolerated Patient Instructions: Prednisone (By mouth), Levofloxacin (By mouth) (Levaquin, Levaquin Leva-edelmira), Oseltamivir (By mouth), Influenza (ED), Opioid Safety, Pain Management Coding Level of Care Code Acute Code for [facility] Diagnoses Influenza J11.1 Acute exacerbation of chronic obstructive pulmonary disease J44.1 COPD (chronic obstructive pulmonary disease) J44.9 Respiratory failure with hypoxia J96.91 Documented by User: Sue Jensen MD 12/12/24 15:08 Diagnoses at Discharge Discharge Diagnosis (1) Influenza: Status: Acute (2) Acute exacerbation of chronic obstructive pulmonary disease: Status: Acute (3) COPD (chronic obstructive pulmonary disease): Status: Acute (4) Respiratory failure with hypoxia: Status: Acute Reason for Visit Reason for Visit: coughing, hurting all over Hospital Course Hospital Course Franny Callahan is a 59-year-old female with history of COPD. She presented to ER on 12/09/2024 after not feeling well 3 days prior to arriving to ER, reporting that her son-in-law was sick recently. She stated generalized bodyaches, nausea, nonproductive cough, shortness of breath with exertion upon arrival. She stated that she did not require oxygen at home and was placed on 2L nasal cannula on day of admission. In the ER she was found to be hypotensive with blood pressure persistently in 80 systolics even after 2 L of IV fluid bolus. She was treated with fluid bolus, steroid and nebulization treatment. Test for Influenza Type A came back positive and patient was started on 5 day course tamiflu. She was admitted to ICU and monitored. She was on duoneb and pulmicort along with ceftriaxone. Azithromycin 500mg PO daily was added on 12/11. Chest x-ray showed evidence of pulmonary atelectasis or acute infiltrates within lower chest bilaterally. Chest CTA was performed and showed no evidence of PE or focal pneumonia. Echo showed normal left ventricular size, systolic function and wall thickness, with no regional wall motion abnormalities. LV EF was estimated at 60%. Grade I/IV diastolic dysfunction with no significant valve abnormalities and no pericardial effusion. Blood cultures are negative to date and lactate was within normal range. She was able to saturated well on room air on 12/11 and was transferred to floor. She is doing well this AM (12/12) and is ready for discharge. Physical Exam Urinary Catheter Management: Demarco: Cath Placed During This Visit: yes, but has since been removed by the nurse Discharge Plan Discharge Patient Disposition: Home Condition: Stable Prescriptions: New oseltamivir 75 mg Capsule 75 mg PO BID Qty: 3 0RF levofloxacin 750 mg tablet 750 mg PO DAILY 2 Days Qty: 2 0RF prednisone 20 mg tablet See Rx Instructions .ROUTE .COMPLEX Qty: 8 0RF Rx Instructions: prednisone 40 bid x1 day 40 mg daily x 2d then stop Continued Trelegy Ellipta 100-62.5-25 mcg blister with device 1 inh INHALATION DAILY albuterol sulfate [Ventolin HFA] 90 mcg/actuation HFA aerosol inhaler 2 puff INHALATION QID PRN (Reason: Shortness Of Breath) Discharge Orders: Discharge Order (Routine); Ordered 12/12/24 Ordered By: Sue Jensen Referrals: Asaf Nails MD [Primary Care Provider] - 12/19/24 11:00 am Discharge Diet: Usual diet Discharge Activity: Increase activity as tolerated Patient Instructions: Prednisone (By mouth), Levofloxacin (By mouth) (Levaquin, Levaquin Leva-edelmira), Oseltamivir (By mouth), Influenza (ED), Opioid Safety, Pain Management Discharge Attestations Time Spent in Discharge Care*: greater than 30 min Quality Metrics Clinical Quality Measures [ No reported AMI, CVA or VTE this stay] Coding Level of Care Code Acute Code for [facility] Diagnoses Influenza J11.1 Acute exacerbation of chronic obstructive pulmonary disease J44.1 COPD (chronic obstructive pulmonary disease) J44.9 Respiratory failure with hypoxia J96.91
== END 2024-12-12 11:16 | disposition home or self-care (01) | DRG 193 ==
LOC: ER 15:30 → ER IP 17:16 → ICU 12-10 16:17 → MEDSURG 12-11 15:36
PROVIDERS: Admitting Provider Student in an Organized Health Care Education/Training Program; Emergency Provider Emergency Medicine; PCP Family Medicine; Visit Provider Internal Medicine
DX: J10.1 Influenza due to other identified influenza virus with other respiratory manifestations (principal); J96.01 Acute respiratory failure with hypoxia; J44.1 Chronic obstructive pulmonary disease with (acute) exacerbation; J98.11 Atelectasis; R57.9 Shock, unspecified; Z79.51 Long term (current) use of inhaled steroids; F17.210 Nicotine dependence, cigarettes, uncomplicated
CPT/HCPCS: 12345; 36415; 36416; 36600; 51702; 71045; 71275; 80048; 80051; 80053; 80061; 81001; 82330; 82533; 82805; 82962; 83036; 83605; 83735; 83880; 84100; 84145; 84443; 85025; 85378; 87040; 87804; 93005; 93306; 94640; 94664; 94760; 96361; 96372; 96374; 96375; 96376; 99285; J0696; J1200; J1644; J2405; J2470; J2919; J7030; J7040; J7626; Q0144

== ENCOUNTER 2025-08-16 12:50 | Outpatient (CLI) | payer MEDICARE, MEDICAID, SELFPAY ==
--- NOTE | 2025-08-16 12:58 | MM_ITS ---
WS: [id number] BILATERAL 3D TOMOSYNTHESIS DIGITAL SCREENING MAMMOGRAPHY WITH CAD CLINICAL INFORMATION: ANNUAL SCREEN HISTORY: Screening mammogram. No current complaints. COMPARISON: 2023 TECHNIQUE: Bilateral CC and MLO views. FINDINGS: Scattered fibroglandular densities bilaterally. No suspicious focal mass, asymmetry, calcifications, or architectural distortion. No evidence of malignancy. MM/MM scr BI tomosynthesis [id number] IMPRESSION: DENSITY: There are scattered areas of fibroglandular density. BI-RADS: 1 - Negative. FOLLOW UP: 1 Year Follow-up Recommend return to annual screening mammography.
== END 2025-08-16 12:51 | disposition home or self-care (01) ==
LOC: RAD 12:53
PROVIDERS: PCP Family Medicine; Visit Provider Family Medicine
DX: Z12.31 Encounter for screening mammogram for malignant neoplasm of breast (principal); Z87.891 Personal history of nicotine dependence; Z78.0 Asymptomatic menopausal state; R92.323 Mammographic fibroglandular density, bilateral breasts
CPT/HCPCS: 77063; 77067